=== PATIENT | female | born 1960 | race American Indian/Alaskan Native ===

== ENCOUNTER 2017-02-06 14:06 | Emergency (ER) | payer MEDICAID ==
[2017-02-06 15:24] LABS: Basophils % (Auto) 1.7 % (0.0-1.8); Eosinophils % (Auto) 3.9 % (0.0-4.3); Hematocrit 41.7 % (30.3-42.9); Hemoglobin 13.2 gm/dl (10.1-14.3); Mean Corpuscular HGB Conc 32 % (30-34); Mean Corpuscular Volume 81 fl (79-97); Platelet Count 178 K/mm3 (140-440); Red Blood Count 5.12 M/mm3 (3.65-5.03); Red Cell Distribution Width 15.7 % (13.2-15.2); White Blood Count 7.2 K/mm3 (4.5-11.0)
[2017-02-06 15:26] LABS: Calcium 6.4 mg/dL (8.4-10.2)
[2017-02-06 15:29] LABS: Mean Corpuscular Hemoglobin 26 pg (28-32)
--- NOTE | 2017-02-06 16:12 | Cat Scan Report ---
CT scan of head without contrast: Findings: Ventricles are normal in size and midline in location. No evidence of acute ischemia, hemorrhage or mass. No extra axial fluid collection. Normal brainstem and cerebellum. Normal sinuses. Left mastoid air cells are well pneumatized. The right are not pneumatized. Impression: No acute intracranial abnormality.
--- NOTE | 2017-02-06 16:14 | Cat Scan Report ---
CT scan of cervical spine: History: Fall. Findings The odontoid process and the lateral mass and in posterior arch of atlas appears unremarkable. Normal occipital condyles. Normal height and signal intensity of vertebral bodies. Decrease in height of C4-C5, C5-C6 and C6-7. Sclerotic edges articular surfaces a peripheral osteophyte suggestive severe cervical spondylosis. No fracture. Normal prevertebral soft tissue. Impression: Cervical spondylosis. No acute fracture. The
[2017-02-06 16:24] LABS: Potassium 3.6 mmol/L (3.6-5.0)
--- NOTE | 2017-02-06 16:35 | Emergency Department Report ---
ED Anxiety HPI - General Chief Complaint: Anxiety Stated Complaint: STRESS Time Seen by Provider: 02/06/17 16:22 Source: patient, EMS Mode of arrival: Ambulatory Limitations: No Limitations - History of Present Illness Initial Comments: 56-year-old female presents to the emergency department complaining of anxiety. Patient states that this morning she began having sharp left-sided chest pain and shortness of breath. She reports shaking all over as well. Chest pain did not radiate. Her symptoms have resolved at this time. Patient reports increased stress due to multiple recent deaths in the family. She states she is having a difficult time coping with the steps. She denies suicidal or homicidal thoughts. She also denies visual or auditory hallucinations. There are no other complaints. MD Complaint: anxiety, shortness of breath -: Sudden, This morning Symptoms: dyspnea, chest pain Place: home Previous History of Same: No Severity: moderate Quality: improving Provoking factors: recent /illness of f Improves With: nothing Worsens With: nothing Associated symptoms: chest pain, shortness of breath, headaches - Related Data Home Medications: Previous Rx's Medication Instructions Recorded Last Taken Type LORazepam [Ativan] 0.5 mg PO Q6H PRN #30 tablet 02/06/17 Unknown Rx Metoprolol [Lopressor TAB] 25 mg PO BID #60 tablet 02/06/17 Unknown Rx Allergies/Adverse Reactions: Allergies Allergy/AdvReac Type Severity Reaction Status Date / Time aspirin Allergy Unknown Verified 02/06/17 14:41 ED Review of Systems ROS: Stated complaint: STRESS Other details as noted in HPI Comment: All other systems reviewed and negative Respiratory: shortness of breath Cardiovascular: chest pain Neurological: headache Psychiatric: anxiety ED Past Medical Hx - Past Medical History Previous Medical History?: Yes Hx Hypertension: Yes Additional medical history: Slow HR, Ear clogged - Surgical History Past Surgical History?: Yes Additional Surgical History: Tubal ligation, cataract surgery - Family History Family history: no significant - Social History Smoking Status: Never Smoker Substance Use Type: Marijuana, Prescribed - Medications Home Medications: Home Medications Medication Instructions Recorded Confirmed Last Taken Type LORazepam [Ativan] 0.5 mg PO Q6H PRN #30 tablet 02/06/17 Unknown Rx Metoprolol [Lopressor TAB] 25 mg PO BID #60 tablet 02/06/17 Unknown Rx ED Physical Exam - General Limitations: No Limitations General appearance: alert, in no apparent distress - Head Head exam: Present: atraumatic, normocephalic - Eye Eye exam: Present: PERRL, EOMI, other (Opacified right lens, consistent with cataract) - ENT ENT exam: Present: normal exam, normal orophraynx, mucous membranes moist - Neck Neck exam: Present: normal inspection, full ROM. Absent: tenderness - Respiratory Respiratory exam: Present: normal lung sounds bilaterally. Absent: respiratory distress - Cardiovascular Cardiovascular Exam: Present: regular rate, normal rhythm, normal heart sounds - GI/Abdominal GI/Abdominal exam: Present: soft, normal bowel sounds. Absent: distended, tenderness - Extremities Exam Extremities exam: Present: normal inspection, full ROM. Absent: tenderness - Back Exam Back exam: Present: normal inspection, full ROM. Absent: tenderness - Neurological Exam Neurological exam: Present: alert, oriented X3. Absent: motor sensory deficit - Skin Skin exam: Present: warm, dry, intact ED Course Vital Signs 02/06/17 02/06/17 02/06/17 14:41 15:21 16:19 Temperature 98.5 F Pulse Rate 95 H Respiratory 20 Rate Blood Pressure 159/126 176/77 Blood Pressure [Left] O2 Sat by Pulse 94 95 Oximetry 02/06/17 02/06/17 02/06/17 16:20 16:30 16:35 Temperature Pulse Rate 98 H Respiratory 18 Rate Blood Pressure 176/77 170/90 Blood Pressure 176/77 [Left] O2 Sat by Pulse 95 94 94 Oximetry 02/06/17 02/06/17 02/06/17 16:40 16:50 17:00 Temperature Pulse Rate Respiratory Rate Blood Pressure 151/97 182/83 182/83 Blood Pressure [Left] O2 Sat by Pulse 93 93 92 Oximetry 02/06/17 02/06/17 02/06/17 17:02 17:10 17:17 Temperature Pulse Rate 103 H Respiratory 18 Rate Blood Pressure 178/108 178/108 Blood Pressure [Left] O2 Sat by Pulse 94 94 Oximetry 02/06/17 02/06/17 02/06/17 17:20 17:30 17:40 Temperature Pulse Rate Respiratory Rate Blood Pressure 187/106 163/88 163/88 Blood Pressure [Left] O2 Sat by Pulse 94 94 93 Oximetry 02/06/17 02/06/17 02/06/17 17:57 18:00 18:10 Temperature Pulse Rate 96 H 97 H Respiratory 12 25 H Rate Blood Pressure 148/94 148/94 148/94 Blood Pressure [Left] O2 Sat by Pulse 81 L Oximetry ED Medical Decision Making - Lab Data Result diagrams: 02/06/17 14:56 02/06/17 14:56 - Medical Decision Making Lab results reviewed and discussed with the patient. Patient has been evaluated by mental health and cleared for discharge with outpatient follow-up. Patient will be discharged home at this time to follow up with a primary care physician. - Differential Diagnosis anxiety, depression, atypical chest pain Critical care attestation.: If time is entered above; I have spent that time in minutes in the direct care of this critically ill patient, excluding procedure time. ED Disposition Clinical Impression: Anxiety, Essential hypertension Disposition: - TO HOME OR SELFCARE Is pt being admited?: No Condition: Stable Instructions: Hypertension (ED), Anxiety (ED) Prescriptions: LORazepam [Ativan] 0.5 mg PO Q6H PRN #30 tablet PRN Reason: Anxiety Metoprolol [Lopressor TAB] 25 mg PO BID #60 tablet Referrals: AMOR TAVAREZ MD [Staff Physician] - 3-5 Days Time of Disposition: 18:55
[2017-02-06] MEDS ORDERED: LOPRESSOR PO ONE (17:12)
[2017-02-06 18:11] LABS: Urine Drugs of Abuse Note Disclamer
[2017-02-06 18:30] LABS: Bilirubin,Urine NEG (Negative); Blood,Urine SM (Negative); Ketones,Urine NEG (Negative); Leukocyte Esterase,Urine LG (Negative); Mucus,Urine FEW /HPF; Nitrite,Urine NEG (Negative); Protein,Urine <15 mg/dL mg/dL (Negative); Urobilinogen,Urine < 2.0 mg/dL (<2.0)
[2017-02-06 18:54] VITALS: BP 161/91
== END 2017-02-06 19:06 | disposition home or self-care (01) ==
LOC: ED 14:06
DX: I10 Essential (primary) hypertension (principal); F41.9 Anxiety disorder, unspecified; F12.10 Cannabis abuse, uncomplicated
CPT/HCPCS: 36415; 70450; 72125; 80048; 80307; 81001; 85025; 99285; G0480; 80320

== ENCOUNTER 2020-07-21 14:25 | Emergency (ER) | payer MEDICAID ==
--- NOTE | 2020-07-21 14:37 | Event Note ---
ED Screening Note ED Screening Note: Patient is a 60-year-old female presents emergency room with complaints of vaginal bleeding that began 4 days ago. she states that today she began to have left-sided abdominal pain and nausea vomiting She states that she feels generalized weakness and dizziness She is currently standing at [facility] She states that she was admitted at [facility] for 2 months and was recently, she states that she was there due to her CHF and COPD, she states that she wears oxygen at home but she states her tank ran out This initial assessment/diagnostic orders/clinical plan/treatment(s) is/are subject to change based on patients health status, clinical progression and re- assessment by fellow clinical providers in the ED. Further treatment and workup at subsequent clinical providers discretion. Patient/guardian urged not to elope from the ED as their condition may be serious if not clinically assessed and managed. Initial orders include: Labs, CT, ultrasound, UA, EKG
[2020-07-21 15:02] LABS: Basophils # (Auto) 0.1 K/mm3 (0.0-0.1); Basophils % (Auto) 0.8 % (0.0-1.8); Eosinophils # (Auto) 0.2 K/mm3 (0.0-0.4); Eosinophils % (Auto) 2.2 % (0.0-4.3); Hematocrit 36.1 % (30.3-42.9); Hemoglobin 11.3 gm/dl (10.1-14.3); Lymphocytes # (Auto) 1.3 K/mm3 (1.2-5.4); Lymphocytes % (Auto) 17.5 % (13.4-35.0); Mean Corpuscular HGB Conc 32 % (30-34); Mean Corpuscular Volume 89 fl (79-97); Monocytes # (Auto) 0.5 K/mm3 (0.0-0.8); Monocytes % (Auto) 6.8 % (0.0-7.3); Platelet Count 187 K/mm3 (140-440); Red Blood Count 4.04 M/mm3 (3.65-5.03); Red Cell Distribution Width 16.2 % (13.2-15.2)
[2020-07-21 15:09] LABS: INR 0.94 (0.87-1.13)
[2020-07-21 15:22] LABS: Alanine Aminotransferase 40 units/L (7-56); Albumin 3.6 g/dL (3.9-5); BUN/Creatinine Ratio 14; Blood Urea Nitrogen 20 mg/dL (7-17); Calcium 9.1 mg/dL (8.4-10.2); Hemolysis Index 4
[2020-07-21 17:26] LABS: Bacteria,Urine 4+ /HPF (Negative); Bilirubin,Urine SM (Negative); Blood,Urine LG (Negative); Color,Urine Red (Yellow); Mucus,Urine 3+ /HPF
[2020-07-21 17:27] LABS: Protein,Urine >500 mg/dL (Negative); RBC,Urine > 182.0 /HPF (0.0-6.0)
[2020-07-21 17:42] LABS: Ictotest,Urine Positive (Negative)
[2020-07-21] MEDS ORDERED: SODIUM CHLORIDE 0.9% 1000 ML 1,000 ML IV ONE (18:31)
[2020-07-21] MEDS ORDERED: cefTRIAXone/NS 1 GM/50 ML 1 GM/50 ML BAG IV ONE (18:40)
[2020-07-21] MEDS ORDERED: ACETAMINOPHEN 500 MG TAB PO ONE (18:42)
--- NOTE | 2020-07-21 19:00 | Emergency Department Report ---
ED General Adult HPI - General Chief complaint: Vaginal Bleeding Stated complaint: DIZZINESS Time Seen by Provider: 07/21/20 18:30 Source: patient Mode of arrival: Wheelchair Limitations: No Limitations - History of Present Illness Initial comments: This is a 60-year-old morbidly obese female she states that last night she started feeling weak with and had episodes of nausea and vomiting states she vomited around 9 times she now complains of generalized abdominal pain urinary frequency and urinary incontinence. She is a resident of a transitional home patient also reports about a month ago being hospitalized at [facility] with respiratory illness which she has recovered well from -: Sudden Location: abdomen Radiation: non-radiation Consistency: constant Improves with: none Worsens with: none Associated Symptoms: loss of appetite, nausea/vomiting, weakness. denies: chest pain, cough, diaphoresis, fever/chills Treatments Prior to Arrival: none - Related Data Previous Rx's Medication Instructions Recorded Last Taken Type LORazepam [Ativan] 0.5 mg PO Q6H PRN #30 tablet 02/06/17 Unknown Rx Metoprolol [Lopressor TAB] 25 mg PO BID #60 tablet 02/06/17 Unknown Rx Ciprofloxacin HCl [Ciprofloxacin 500 mg PO Q12HR 7 Days #14 tab 07/21/20 Unknown Rx TAB] Allergies Allergy/AdvReac Type Severity Reaction Status Date / Time aspirin Allergy Unknown Verified 02/06/17 14:41 ED Review of Systems ROS: Stated complaint: DIZZINESS Other details as noted in HPI Constitutional: no symptoms reported, chills, malaise Eyes: denies: eye discharge, vision change ENT: denies: dental pain, hearing loss, congestion Respiratory: denies: cough, shortness of breath, SOB with exertion, wheezing Cardiovascular: denies: chest pain, palpitations, dyspnea on exertion, edema, syncope, paroxysmal nocturnal dyspnea Endocrine: denies: excessive sweating, flushing, intolerance to cold, intolerance to heat Gastrointestinal: abdominal pain, nausea, vomiting, other (Loose stools) Genitourinary: urgency, frequency Skin: denies: rash, lesions, change in hair/nails Neurological: denies: headache, weakness Psychiatric: denies: anxiety, depression Hematological/Lymphatic: denies: easy bleeding ED Past Medical Hx - Past Medical History Previous Medical History?: Yes Hx Hypertension: Yes Hx Congestive Heart Failure: Yes (home O2) Hx Asthma: Yes Hx COPD: Yes Additional medical history: Slow HR, Ear clogged - Surgical History Additional Surgical History: Tubal ligation, cataract surgery - Social History Smoking Status: Never Smoker Substance Use Type: None - Medications Home Medications: Home Medications Medication Instructions Recorded Confirmed Last Taken Type LORazepam [Ativan] 0.5 mg PO Q6H PRN #30 tablet 02/06/17 Unknown Rx Metoprolol [Lopressor TAB] 25 mg PO BID #60 tablet 02/06/17 Unknown Rx Ciprofloxacin HCl [Ciprofloxacin 500 mg PO Q12HR 7 Days #14 tab 07/21/20 Unk nown Rx TAB] ED Physical Exam - General Limitations: No Limitations General appearance: alert, in no apparent distress, other (Morbidly obese) - Head Head exam: Present: atraumatic - Eye Eye exam: Present: normal appearance, EOMI - ENT ENT exam: Present: normal exam, mucous membranes dry - Neck Neck exam: Present: normal inspection - Respiratory Respiratory exam: Present: normal lung sounds bilaterally. Absent: respiratory distress, wheezes, rales, rhonchi, chest wall tenderness - Cardiovascular Cardiovascular Exam: Present: regular rate, normal heart sounds - GI/Abdominal GI/Abdominal exam: Present: soft, normal bowel sounds. Absent: guarding, rebound - Rectal Rectal exam: Present: other (liquid brown stool) - Speculum exam: Present: vaginal bleeding. Absent: tissue - Extremities Exam Extremities exam: Present: other (excessive dryness) - Neurological Exam Neurological exam: Present: alert, oriented X3 - Psychiatric Psychiatric exam: Present: normal affect - Skin Skin exam: Present: warm, dry, normal color ED Course Vital Signs 07/21/20 07/21/20 07/21/20 14:31 20:59 21:08 Temperature 98.2 F 98.5 F Pulse Rate 78 95 H Respiratory 18 16 18 Rate Blood Pressure 135/78 143/122 Blood Pressure [Left] O2 Sat by Pulse 94 100 Oximetry 07/21/20 07/21/20 21:09 21:44 Temperature 98.5 F Pulse Rate 92 H Respiratory 16 18 Rate Blood Pressure Blood Pressure 143/122 [Left] O2 Sat by Pulse 100 99 Oximetry - Reevaluation(s) Reevaluation #1: 07/21/20 20:57 At patient bedside vaginal exam done there is small amount of dark red blood from the cervix no clots noted. Nurses unable to get IV started. I started a 22-gauge Angiocath to the right AC. Fluids started IV Rocephin home waiting for CT of the abdomen Reevaluation #2: 07/21/20 23:41 To see patient she is in no acute distress all findings discussed with patient. She is aware of the that she has a urinary tract infection. Also the concern for postmenopausal bleeding and importance of follow-up with with [facility] for further evaluation and treatment. Patient aware of the findings for her CAT scan. I encourage patient to carry out good hygiene drinking lots of fluids taking antibiotics as prescribed. Patient in no acute distress 07/21/20 23:42 ED Medical Decision Making - Lab Data Result diagrams: 07/21/20 14:42 07/21/20 14:42 - Radiology Data Radiology results: report reviewed FINDINGS: Lung Bases: Mild groundglass opacities in the lung bases, greater on the right, could be atelectatic but are nonspecific. No dense consolidation. Skeletal System: No acute abnormality. ABDOMEN: Liver: No significant abnormality. Gallbladder: No significant abnormality. Bile Ducts: No significant abnormality. Pancreas: No significant abnormality. Spleen: No significant abnormality. Adrenals: No significant abnormality. Right Kidney: No significant abnormality. Left Kidney: No significant abnormality. Upper GI tract: No significant abnormality. Lymph Nodes: No significant adenopathy. Aorta: No significant abnormality. Additional Findings: There is a small fat-containing umbilical hernia. PELVIS: Colon: No acute abnormality. Diverticulosis is noted. Urinary Bladder and Distal Ureters: No significant abnormality. Appendix: No significant abnormality. Lymph Nodes: No significant adenopathy. Additional Findings: The cervix is somewhat prominent. Uterus is otherwise unremarkable, given noncontrast technique. No ovarian pathology. IMPRESSION: 1. Within the limitations of non contrast technique, no acute process in the abdomen or pelvis. 2. Mild prominence of the cervix, correlate with physical exam. 3. Mild somewhat streaky groundglass opacities within both lung bases may be atelectatic. - Medical Decision Making 60-year-old morbidly obese female she presents with abdominal pain. No acute abnormal findings in her blood work. Her urine analysis is positive for an acute urinary tract infection. CAT scan of of her abdomen Mild prominence of the cervix, correlate with physical exam. Mild somewhat streaky ground postmenopausal bleeding which would need glass opacities within both lung bases may be atelectatic. Her physical exam was positive for vaginal bleeding. Patient will need follow-up for postmenopausal bleeding with [facility]. The atelectatic appearance of her lung bases follows along with the fact that patient was recently admitted at [facility] for upper respiratory symptoms. In the emergency room patient was given 1 liter normal saline bolus . IV Rocephin given. Oral antibiotic for UTI very little concern for urosepsis not tachy cardicshe has a normal white count,afebrile - Differential Diagnosis Urinary tract infection postmenopausal bleeding urosepsis Critical Care Time: No Critical care attestation.: If time is entered above; I have spent that time in minutes in the direct care of this critically ill patient, excluding procedure time. ED Disposition Clinical Impression: Postmenopausal bleeding Urinary tract infection Qualifiers: Urinary tract infection type: acute cystitis Hematuria presence: with hematuria Qualified Code(s): N30.01 - Acute cystitis with hematuria Disposition: TO HOME OR SELFCARE Is pt being admited?: No Does the pt Need Aspirin: No Condition: Stable Instructions: Antibiotic Medicine, Adult, [id number], Urinary Tract Infection, Adult, Postmenopausal Bleeding, [id number] Additional Instructions: It is very important that you follow-up with your [facility] doctor regarding vaginal bleeding. Please follow-up with my [facility] at [phone] call and make an appointment as soon as possible. Drink plenty fluids at least 6 to 8 glasses/day of water. Take antibiotic as prescribed. Return to the emergency room for any worsening symptoms which includes fever chills inability to eat Prescriptions: Ciprofloxacin HCl [Ciprofloxacin TAB] 500 mg PO Q12HR 7 Days #14 tab Referrals: FRANK MARIN MD [Primary Care Provider] - 3-5 Days CLAUDIA HOLCOMB MD [Staff Physician] - 3-5 Days Time of Disposition: 23:28
--- NOTE | 2020-07-21 22:43 | Cat Scan Report ---
CT ABDOMEN AND PELVIS WITHOUT IV CONTRAST INDICATION: abd pain, n/v, vaginal bleeding. COMPARISON: None available. TECHNIQUE: All CT scans at this facility use dose modulation, automated exposure control, iterative reconstructi on or weight based dosing, when appropriate, to reduce radiation dose to as low as reasonably achieva ble. FINDINGS: Lung Bases: Mild groundglass opacities in the lung bases, greater on the right, could be atelectatic but are nonspecific. No dense consolidation. Skeletal System: No acute abnormality. ABDOMEN: Liver: No significant abnormality. Gallbladder: No significant abnormality. Bile Ducts: No significant abnormality. Pancreas: No significant abnormality. Spleen: No significant abnormality. Adrenals: No significant abnormality. Right Kidney: No significant abnormality. Left Kidney: No significant abnormality. Upper GI tract: No significant abnormality. Lymph Nodes: No significant adenopathy. Aorta: No significant abnormality. Additional Findings: There is a small fat-containing umbilical hernia. PELVIS: Colon: No acute abnormality. Diverticulosis is noted. Urinary Bladder and Distal Ureters: No significant abnormality. Appendix: No significant abnormality. Lymph Nodes: No significant adenopathy. Additional Findings: The cervix is somewhat prominent. Uterus is otherwise unremarkable, given noncon trast technique. No ovarian pathology. IMPRESSION: 1. Within the limitations of non contrast technique, no acute process in the abdomen or pelvis. 2. Mild prominence of the cervix, correlate with physical exam. 3. Mild somewhat streaky groundglass opacities within both lung bases may be atelectatic. Signer Name: Adin Newman MD Signed: 07/21/2020 10:39 PM Workstation Name: [id number]
[2020-07-21] MEDS ORDERED: oxyCODONE /ACETAMINOPHEN 5-325MG TAB PO ONE (23:40)
[2020-07-22 01:02] VITALS: BP 137/92
== END 2020-07-22 01:00 | disposition home or self-care (01) ==
LOC: ED 14:25
DX: N95.0 Postmenopausal bleeding (principal); N39.0 Urinary tract infection, site not specified; I11.0 Hypertensive heart disease with heart failure; I50.9 Heart failure, unspecified; J44.9 Chronic obstructive pulmonary disease, unspecified; Z98.51 Tubal ligation status; Z79.899 Other long term (current) drug therapy; Z88.6 Allergy status to analgesic agent
CPT/HCPCS: 36415; 74176; 80053; 81001; 83690; 84484; 85025; 85610; 85730; 86850; 86900; 86901; 93005; 96365; 96366; 99285; J0696; J7030

== ENCOUNTER 2020-07-24 08:43 | Emergency (ER) | payer MEDICAID ==
[2020-07-24] MEDS ORDERED: fentaNYL 100 MCG/2 ML INJ IV ONE (11:35)
[2020-07-24] MEDS ORDERED: fentaNYL 100 MCG/2 ML INJ IM ONE (11:35)
[2020-07-24] MEDS ORDERED: ONDANSETRON 4 MG/2 ML INJ IM ONE (11:36)
[2020-07-24] MEDS ORDERED: BUTALB/ACETAMINOPHEN/CAFFEINE TAB PO ONE (11:36)
--- NOTE | 2020-07-24 11:43 | Emergency Department Report ---
HPI - General Chief Complaint: Headache Time Seen by Provider: 07/24/20 11:08 - HPI HPI: Room 5 The patient is a 60-year-old female present with a chief complaint of headache. Patient states last night she developed occipital headache. Patient admits to nausea vomiting but denies fever. Patient states her headache has been intermittent and she currently gives it a score of 10/10. Patient states her last traumatic event occurred April 26, 2020 when she fell down some stairs. Patient states she went to [facility] emergency department and received a CAT scan but was not given any information about the results ED Past Medical Hx - Past Medical History Previous Medical History?: Yes Hx Hypertension: Yes Hx Congestive Heart Failure: Yes (home O2) Hx Asthma: Yes Hx COPD: Yes Additional medical history: Slow HR, Ear clogged - Surgical History Past Surgical History?: Yes Additional Surgical History: Tubal ligation, cataract surgery - Family History Family history: no significant - Social History Smoking Status: Never Smoker Substance Use Type: None (Denies illicit drug use) - Medications Home Medications: Home Medications Medication Instructions Recorded Confirmed Last Taken Type LORazepam [Ativan] 0.5 mg PO Q6H PRN #30 tablet 02/06/17 Unknown Rx Metoprolol [Lopressor TAB] 25 mg PO BID #60 tablet 02/06/17 Unknown Rx Ciprofloxacin HCl [Ciprofloxacin 500 mg PO Q12HR 7 Days #14 tab 07/21/20 Unknown Rx TAB] HYDROcodone/APAP 5-325 [[place] 1 - 2 each PO Q6HR PRN #10 tablet 07/24/20 Unknown Rx 5/325] ED Review of Systems ROS: Stated complaint: DIZZINESS,HEADACHE Other details as noted in HPI Constitutional: no symptoms reported. denies: fever Eyes: denies: eye pain ENT: denies: throat pain Respiratory: no symptoms reported Cardiovascular: denies: chest pain Endocrine: no symptoms reported Gastrointestinal: nausea, vomiting. denies: abdominal pain Genitourinary: denies: dysuria Musculoskeletal: denies: back pain Neurological: headache Physical Exam - Physical Exam Vital Signs: Vital Signs 07/24/20 07/24/20 09:06 10:34 Temperature 98.3 F 98.1 F Pulse Rate 107 H 92 H Respiratory 22 18 Rate Blood Pressure 166/72 Blood Pressure 159/87 [Right] O2 Sat by Pulse 94 93 Oximetry Physical Exam: GENERAL: The patient is well-developed well-nourished female lying on stretcher appearing to be in mild discomfort HEENT: Normocephalic. Atraumatic. Extraocular motions are intact. Patient has moist mucous membranes. NECK: Supple. Trachea midline CHEST/LUNGS: Clear to auscultation. There is no respiratory distress noted. HEART/CARDIOVASCULAR: Regular. There is no tachycardia. There is no gallop rub or murmur. ABDOMEN: Abdomen is soft, nontender. Patient has normal bowel sounds. There is no abdominal distention. SKIN: There is no rash. There is no edema. There is no diaphoresis. NEURO: The patient is awake, alert, and oriented. The patient is cooperative. The patient has no focal neurologic deficits. The patient has normal speech. Cranial nerves II through XII grossly intact MUSCULOSKELETAL: There is no evidence of acute injury. ED Course Vital Signs 07/24/20 07/24/20 09:06 10:34 Temperature 98.3 F 98.1 F Pulse Rate 107 H 92 H Respiratory 22 18 Rate Blood Pressure 166/72 Blood Pressure 159/87 [Right] O2 Sat by Pulse 94 93 Oximetry ED Medical Decision Making - Radiology Data Radiology results: report reviewed (CT head), image reviewed (CT head) [place] [address] Cat Scan Report Signed Patient: CHHAYA BOYLE MR#: [id number] : 1960 Acct:[id number] Age/Sex: 60 / F ADM Date: 07/24/20 Loc: ED Attending Dr: Ordering Physician: CHINO REARDON MD Date of Service: 07/24/20 Procedure(s): CT head/brain wo con Accession Number(s): [id number] cc: CHINO REARDON MD CT HEAD WITHOUT CONTRAST INDICATION / CLINICAL INFORMATION: Headaches TECHNIQUE: All CT scans at this location are performed using CT dose reduction for ALARA by means of automated exposure control. COMPARISON: 02/06/17 FINDINGS: BRAIN PARENCHYMA: No acute intracranial hemorrhage. No evidence of recent infarct. No mass effect or midline shift. VENTRICULAR SYSTEM/EXTRA-AXIAL SPACES: Ventricles are normal for age. No extra-axial fluid collection. ORBITS: Normal as visualized. SKELETAL SYSTEM/SOFT TISSUES: Normal bones and soft tissues. PARANASAL SINUSES/MASTOID AIR CELLS: No significant abnormality. ADDITIONAL FINDINGS: None. IMPRESSION: No acute intracranial abnormality. Signer Name: Ashely Meza MD Signed: 07/24/2020 12:45 PM Workstation Name: [id number] Transcribed By: EKTA Dictated By: ASHELY PULIDO MD Electronically Authenticated By: ASHELY PULIDO MD Signed Date/Time: 07/24/20 124 DD/ TD/TT: - Differential Diagnosis Headache, subdural hematoma, Critical care attestation.: If time is entered above; I have spent that time in minutes in the direct care of this critically ill patient, excluding procedure time. ED Disposition Clinical Impression: Headache Disposition: DC- TO HOME OR SELFCARE Is pt being admited?: No Does the pt Need Aspirin: No Condition: Stable Additional Instructions: Return to the emergency department should you develop worsening symptoms, inability to tolerate food or liquids, high fever or any other concerns Prescriptions: HYDROcodone/APAP 5-325 [[place] 5/325] 1 - 2 each PO Q6HR PRN #10 tablet PRN Reason: Pain Referrals: PRIMARY CARE, [Primary Care Provider] - 3-5 Days PHILIPPE MARTINO MD [Staff Physician] - 3-5 Days (Dr. Martino is a neurologist. Please follow-up with him for further evaluation) Time of Disposition: 14:29
--- NOTE | 2020-07-24 12:50 | Cat Scan Report ---
CT HEAD WITHOUT CONTRAST INDICATION / CLINICAL INFORMATION: Headaches TECHNIQUE: All CT scans at this location are performed using CT dose reduction for ALARA by means of automated exposure control. COMPARISON: 02/06/17 FINDINGS: BRAIN PARENCHYMA: No acute intracranial hemorrhage. No evidence of recent infarct. No mass effect or midline shift. VENTRICULAR SYSTEM/EXTRA-AXIAL SPACES: Ventricles are normal for age. No extra-axial fluid collection . ORBITS: Normal as visualized. SKELETAL SYSTEM/SOFT TISSUES: Normal bones and soft tissues. PARANASAL SINUSES/MASTOID AIR CELLS: No significant abnormality. ADDITIONAL FINDINGS: None. IMPRESSION: No acute intracranial abnormality. Signer Name: Chin Meza MD Signed: 07/24/2020 12:45 PM Workstation Name: [id number]
[2020-07-24] MEDS ORDERED: HYDROmorphone 1 MG/1 ML INJ IM ONE (13:53)
[2020-07-24 17:06] VITALS: BP 163/98
== END 2020-07-24 21:27 | disposition home or self-care (01) ==
LOC: ED 08:43
DX: R51.9 Headache, unspecified (principal); I11.0 Hypertensive heart disease with heart failure; I50.9 Heart failure, unspecified; J44.9 Chronic obstructive pulmonary disease, unspecified; Z98.51 Tubal ligation status; Z98.890 Other specified postprocedural states; Z88.6 Allergy status to analgesic agent
CPT/HCPCS: 70450; 96372; 99284; J1170; J2405; J3010

== ENCOUNTER 2020-07-26 12:00 | Emergency (ER) | payer MEDICAID ==
[2020-07-26] MEDS ORDERED: ONDANSETRON 4 MG/2 ML INJ IV ONE (14:43)
[2020-07-26] MEDS ORDERED: MORPHINE 4 MG/1 ML INJ IV ONE (14:43)
--- NOTE | 2020-07-26 14:47 | Emergency Department Report ---
ED Dizziness HPI - General Chief Complaint: Dizziness Stated Complaint: DIZZINESS,HOT CHEST Time Seen by Provider: 07/26/20 14:34 Source: patient, EMS Mode of arrival: Stretcher Limitations: No Limitations - History of Present Illness Initial Comments: Patient is 60 years old female with history of congestive heart failure, hypertension and COPD. Patient is on home oxygen. Patient presented to the ER via EMS from home complaining of dizziness for the last few days and feeling hot all over. Patient stated that she has similar episode like this before. Patient also complaining of headache. Patient denied any focal weakness numbness or tingling sensation. No chest pain or shortness of breath. MD Complaint: dizziness, lightheadedness -: days(s) Timing: gradual onset Description: sense of movement History of Same: Yes Severity: moderate Associated Symptoms: denies other symptoms - Related Data Previous Rx's Medication Instructions Recorded Last Taken Type LORazepam [Ativan] 0.5 mg PO Q6H PRN #30 tablet 02/06/17 Unknown Rx Metoprolol [Lopressor TAB] 25 mg PO BID #60 tablet 02/06/17 Unknown Rx Ciprofloxacin HCl [Ciprofloxacin 500 mg PO Q12HR 7 Days #14 tab 07/21/20 Unknown Rx TAB] HYDROcodone/APAP 5-325 [Sidon 1 - 2 each PO Q6HR PRN #10 tablet 07/24/20 Unknown Rx 5/325] Promethazine [Phenergan] 25 mg PO Q6HR PRN #20 tab 07/24/20 Unknown Rx Promethazine [Phenergan] 25 mg ND Q6HR PRN #5 supp.rect 07/24/20 Unknown Rx Allergies Allergy/AdvReac Type Severity Reaction Status Date / Time aspirin Allergy Unknown Verified 02/06/17 14:41 ED Review of Systems ROS: Stated complaint: DIZZINESS,HOT CHEST Other details as noted in HPI Comment: All other systems reviewed and negative Constitutional: denies: chills, fever Respiratory: denies: cough, shortness of breath, SOB with exertion, wheezing Cardiovascular: denies: chest pain, palpitations Gastrointestinal: denies: abdominal pain, nausea, vomiting Musculoskeletal: denies: back pain Neurological: headache. denies: weakness, numbness, paresthesias, confusion, abnormal gait ED Past Medical Hx - Past Medical History Hx Hypertension: Yes Hx Congestive Heart Failure: Yes (home O2) Hx Asthma: Yes Hx COPD: Yes Additional medical history: Slow HR, Ear clogged - Surgical History Additional Surgical History: Tubal ligation, cataract surgery - Social History Smoking Status: Unknown if ever smoked - Medications Home Medications: Home Medications Medication Instructions Recorded Confirmed Last Taken Type LORazepam [Ativan] 0.5 mg PO Q6H PRN #30 tablet 02/06/17 Unknown Rx Metoprolol [Lopressor TAB] 25 mg PO BID #60 tablet 02/06/17 Unknown Rx Ciprofloxacin HCl [Ciprofloxacin 500 mg PO Q12HR 7 Days #14 tab 07/21/20 Unknown Rx TAB] HYDROcodone/APAP 5-325 [Sidon 1 - 2 each PO Q6HR PRN #10 tablet 07/24/20 Unknown Rx 5/325] Promethazine [Phenergan] 25 mg PO Q6HR PRN #20 tab 07/24/20 Unknown Rx Promethazine [Phenergan] 25 mg ND Q6HR PRN #5 supp.rect 07/24/20 Unknown Rx ED Physical Exam - General Limitations: No Limitations General appearance: alert, in no apparent distress - Head Head exam: Present: atraumatic, normocephalic, normal inspection - Eye Eye exam: Present: normal appearance - ENT ENT exam: Present: normal exam, normal orophraynx, mucous membranes moist - Neck Neck exam: Present: normal inspection, full ROM. Absent: tenderness, meningismus - Respiratory Respiratory exam: Present: normal lung sounds bilaterally - Cardiovascular Cardiovascular Exam: Present: regular rate, normal rhythm, normal heart sounds - GI/Abdominal GI/Abdominal exam: Present: soft, normal bowel sounds. Absent: distended, tenderness, guarding, rebound, rigid, organomegaly, mass, bruit, pulsatile mass, hernia - Extremities Exam Extremities exam: Present: normal inspection, full ROM, normal capillary refill. Absent: pedal edema, calf tenderness - Back Exam Back exam: Present: normal inspection, full ROM. Absent: CVA tenderness (R), CVA tenderness (L) - Neurological Exam Neurological exam: Present: alert, oriented X3, CN II-XII intact - Psychiatric Psychiatric exam: Present: normal mood - Skin Skin exam: Present: warm, intact, normal color ED Course Vital Signs 07/26/20 07/26/20 07/26/20 16:31 16:32 16:34 Pulse Rate 85 76 Respiratory 22 16 20 Rate Blood Pressure 128/78 O2 Sat by Pulse 100 98 Oximetry 07/26/20 07/26/20 07/26/20 16:45 17:01 17:02 Pulse Rate 71 66 Respiratory 21 13 16 Rate Blood Pressure 128/78 114/53 O2 Sat by Pulse 100 100 Oximetry 07/26/20 07/26/20 07/26/20 17:15 17:31 17:45 Pulse Rate 72 77 89 Respiratory 15 13 16 Rate Blood Pressure 114/53 114/53 114/53 O2 Sat by Pulse 100 100 87 Oximetry 07/26/20 18:01 Pulse Rate 69 Respiratory 14 Rate Blood Pressure 120/82 O2 Sat by Pulse 100 Oximetry ED Medical Decision Making - Lab Data Result diagrams: 07/26/20 14:55 07/26/20 14:55 - EKG Data -: EKG Interpreted by Me EKG shows normal: sinus rhythm Rate: normal - EKG Data Interpretation: no acute changes - Radiology Data Radiology results: report reviewed - Medical Decision Making Patient is 60 years old female with history of congestive heart failure, hypertension and COPD. Patient is on home oxygen. Patient presented to the ER via EMS from home complaining of dizziness for the last few days and feeling hot all over. Patient stated that she has similar episode like this before. Patient also complaining of headache. Patient denied any focal weakness n umbness or tingling sensation. No chest pain or shortness of breath. Patient received morphine and Zofran. Patient stated that she is feeling much better labs reviewed and is unremarkable. CT brain is negative for acute finding chest x-ray is unremarkable. Patient advised to follow-up with her primary care physician in the next 2 to 3 days and to return to the ER if she develop any new symptoms. Critical care attestation.: If time is entered above; I have spent that time in minutes in the direct care of this critically ill patient, excluding procedure time. ED Disposition Clinical Impression: Dizziness, Acute headache Disposition: -01 TO HOME OR SELFCARE Is pt being admited?: No Condition: Stable Instructions: General Headache Without Cause Referrals: PRIMARY CARE, [Primary Care Provider] - 3-5 Days
--- NOTE | 2020-07-26 15:15 | XRay Report ---
CHEST 1 VIEW INDICATION: Lightheadedness/Dizziness. COMPARISON: None. FINDINGS: Support devices: None. Heart: Normal. Lungs/Pleura: There are mild diffuse bilateral airspace opacities. No pleural abnormality. IMPRESSION: 1. Mild diffuse bilateral airspace opacities are nonspecific but could be seen in the setting of marisa a or bilateral infection. Signer Name: Adin Newman MD Signed: 07/26/2020 3:11 PM Workstation Name: [id number]
[2020-07-26 15:29] LABS: Hematocrit 33.3 % (30.3-42.9); Hemoglobin 10.4 gm/dl (10.1-14.3); Mean Corpuscular HGB Conc 31 % (30-34); Mean Corpuscular Volume 92 fl (79-97); Red Blood Count 3.61 M/mm3 (3.65-5.03); Red Cell Distribution Width 17.3 % (13.2-15.2)
[2020-07-26 15:30] LABS: Basophils # (Auto) 0.1 K/mm3 (0.0-0.1); Basophils % (Auto) 0.9 % (0.0-1.8); Eosinophils # (Auto) 0.4 K/mm3 (0.0-0.4); Eosinophils % (Auto) 4.3 % (0.0-4.3); Lymphocytes # (Auto) 2.1 K/mm3 (1.2-5.4); Lymphocytes % (Auto) 25.2 % (13.4-35.0); Monocytes # (Auto) 0.7 K/mm3 (0.0-0.8); Monocytes % (Auto) 8.2 % (0.0-7.3); Platelet Count 208 K/mm3 (140-440)
--- NOTE | 2020-07-26 16:02 | Cat Scan Report ---
CT BRAIN: 07/26/2020 INDICATION / CLINICAL INFORMATION: Lightheadedness/Dizziness. COMPARISON: 07/24/2020 FINDINGS: BRAIN/INTRACRANIAL STRUCTURES: Unenhanced CT images of the brain demonstrate no evidence of acute int racranial abnormality. Ventricles and sulci are normal in size and shape for a patient of this age. There is no evidence of acute ischemic injury, hemorrhage, or mass. There are no abnormal extra-axial fluid collections. EXTRACRANIAL STRUCTURES: Unremarkable. IMPRESSION: No acute abnormality. Negative unenhanced CT of the brain for age. There is been no change when compared to 07/24/2020. All CT scans at this location are performed using dose reduction to ALARA by means of automated expos ure control. Signer Name: Jonathan Montes MD Signed: 07/26/2020 3:57 PM Workstation Name: [id number]
[2020-07-26 16:40] LABS: Alanine Aminotransferase 25 units/L (7-56); Albumin 3.5 g/dL (3.9-5); BUN/Creatinine Ratio 15; Blood Urea Nitrogen 16 mg/dL (7-17); Calcium 7.7 mg/dL (8.4-10.2); Hemolysis Index 15
[2020-07-26 16:48] LABS: Bilirubin,Direct < 0.2 mg/dL (0-0.2)
[2020-07-26 18:31] LABS: Bilirubin,Urine NEG (Negative); Blood,Urine MOD (Negative); Color,Urine Yellow (Yellow); Mucus,Urine FEW /HPF; Urobilinogen,Urine < 2.0 mg/dL (<2.0)
[2020-07-27 13:19] VITALS: BP 101/65
== END 2020-07-27 13:19 | disposition home or self-care (01) ==
LOC: ED 12:00
DX: R51.9 Headache, unspecified (principal); R42 Dizziness and giddiness; I11.0 Hypertensive heart disease with heart failure; I50.9 Heart failure, unspecified; J44.9 Chronic obstructive pulmonary disease, unspecified; Z98.890 Other specified postprocedural states; Z88.6 Allergy status to analgesic agent; Z79.899 Other long term (current) drug therapy; Z98.51 Tubal ligation status
CPT/HCPCS: 36415; 70450; 71045; 80048; 80076; 81001; 82140; 84484; 85025; 96374; 96375; 99285; J2270; J2405

== ENCOUNTER 2020-07-29 11:04 | Observation (INO) | payer MEDICAID ==
[2020-07-29] MEDS ORDERED: MECLIZINE 25 MG TAB PO ONE (11:45)
[2020-07-29] MEDS ORDERED: METOCLOPRAMIDE 10 MG TAB PO ONE (11:45)
[2020-07-29] MEDS ORDERED: ACETAMINOPHEN 325 MG TAB PO ONE (11:45)
--- NOTE | 2020-07-29 11:47 | Emergency Department Report ---
ED General Adult HPI - General Chief complaint: Abdominal Pain Stated complaint: CHEST PAIN PUI?: Yes Time Seen by Provider: 07/29/20 11:30 Source: patient, EMS ( EMS documentation not available at time of chart dictation ), RN notes reviewed, old records reviewed Mode of arrival: Wheelchair Limitations: Physical Limitation - History of Present Illness Initial comments: The patient was evaluated in the emergency department for symptoms described in the history of present illness. He/she was evaluated in the context of the g lobal COVID-19 pandemic, which necessitated consideration that the patient might be at risk for infection with the virus that causes COVID-19. Institutional protocols and algorithms that pertain to the evaluation of patients at risk for COVID-19 are in a state of rapid change based on information released by regulatory bodies including the CDC and federal and state organizations. These policies and algorithms were followed during the patient's care in the emergency department. Please note that these policies, procedures and recommendations changed on a rapid basis. Patient is a 60-year-old female. She has a history of morbid obesity, reported CHF, unknown ejection fraction, COPD, hypertension, on oxygen. Patient has frequently presents to this emergency room over the past couple . Today, she presents to the ER with a complaint of nontraumatic diffuse abdominal cramping, constipation, headache which is nontraumatic, which she describes as dizziness/vertigo. No neck pain, chest pain. Chronic shortness of breath. She is not sure if she is having dysuria. The patient is not accompanied by friends or family at this time. She states that she has no ringing or buzzing sounds in her ears. She has had multiple recent evaluations for similar symptoms. However, today, she is found to have a low-grade fever, borderline hypoxia, and hypoglycemia. These appear to be somewhat new for the patient. She is not sure what medications she takes. -: Gradual, days(s) Location: head, abdomen Consistency: constant Improves with: none Worsens with: none - Related Data Previous Rx's Medication Instructions Recorded Last Taken Type LORazepam [Ativan] 0.5 mg PO Q6H PRN #30 tablet 02/06/17 Unknown Rx Metoprolol [Lopressor TAB] 25 mg PO BID #60 tablet 02/06/17 Unknown Rx Ciprofloxacin HCl [Ciprofloxacin 500 mg PO Q12HR 7 Days #14 tab 07/21/20 Unknown Rx TAB] HYDROcodone/APAP 5-325 [Jenks 1 - 2 each PO Q6HR PRN #10 tablet 07/24/20 Unknown Rx 5/325] Promethazine [Phenergan] 25 mg PO Q6HR PRN #20 tab 07/24/20 Unknown Rx Promethazine [Phenergan] 25 mg CA Q6HR PRN #5 supp.rect 07/24/20 Unknown Rx Ondansetron [Zofran Odt] 4 mg PO Q8HR PRN #14 tab.rapdis 07/26/20 Unknown Rx traMADoL [Ultram 50 MG tab] 50 mg PO Q4HR PRN #14 tablet 07/26/20 Unknown Rx Allergies Allergy/AdvReac Type Severity Reaction Status Date / Time aspirin Allergy Unknown Verified 07/29/20 11:16 ED Review of Systems ROS: Stated complaint: CHEST PAIN Other details as noted in HPI Constitutional: malaise, weakness Eyes: denies: eye discharge ENT: denies: epistaxis Respiratory: cough, shortness of breath Cardiovascular: denies: chest pain Gastrointestinal: abdominal pain, constipation Genitourinary: as per HPI, dysuria Musculoskeletal: myalgia Neurological: weakness ED Past Medical Hx - Past Medical History Hx Hypertension: Yes Hx Congestive Heart Failure: Yes (home O2) Hx Asthma: Yes Hx COPD: Yes Additional medical history: Slow HR, Ear clogged - Surgical History Additional Surgical History: Tubal ligation, cataract surgery - Social History Smoking Status: Unknown if ever smoked - Medications Home Medications: Home Medications Medication Instructions Recorded Confirmed Last Taken Type LORazepam [Ativan] 0.5 mg PO Q6H PRN #30 tablet 02/06/17 Unknown Rx Metoprolol [Lopressor TAB] 25 mg PO BID #60 tablet 02/06/17 Unknown Rx Ciprofloxacin HCl [Ciprofloxacin 500 mg PO Q12HR 7 Days #14 tab 07/21/20 Unknown Rx TAB] HYDROcodone/APAP 5-325 [Jenks 1 - 2 each PO Q6HR PRN #10 tablet 07/24/20 Unknown Rx 5/325] Promethazine [Phenergan] 25 mg PO Q6HR PRN #20 tab 07/24/20 Unknown Rx Promethazine [Phenergan] 25 mg CA Q6HR PRN #5 supp.rect 07/24/20 Unknown Rx Ondansetron [Zofran Odt] 4 mg PO Q8HR PRN #14 tab.rapdis 07/26/20 Unknown Rx traMADoL [Ultram 50 MG tab] 50 mg PO Q4HR PRN #14 tablet 07/26/20 Unknown Rx ED Physical Exam - General Limitations: Physical Limitation General appearance: alert, anxious, in distress, obese - Head Head exam: Present: atraumatic, normocephalic - Eye Eye exam: Present: normal appearance, PERRL, EOMI, other (Visual acuity intact to finger counting, color perception, reading at a close distance). Absent: nystagmus - ENT ENT exam: Present: normal exam, normal orophraynx, mucous membranes moist, normal external ear exam - Neck Neck exam: Present: normal inspection, full ROM. Absent: tenderness, meningismus - Respiratory Respiratory exam: Present: decreased breath sounds. Absent: respiratory distress, wheezes, rales, rhonchi, stridor - Cardiovascular Cardiovascular Exam: Present: normal rhythm, tachycardia, normal heart sounds. Absent: systolic murmur, diastolic murmur, rubs, gallop - GI/Abdominal GI/Abdominal exam: Present: soft, tenderness, other (Tenderness to palpation in the left lower quadrant). Absent: distended, guarding, rebound, rigid, pul satile mass - Extremities Exam Extremities exam: Present: normal inspection, full ROM, pedal edema (1+ edema in the bilateral lower extremities), other (2+ pulses noted in the bilateral upper and lower extremities. There is no palpable cord. negative Homans sign. Muscular compartments are soft. The pelvis is stable.). Absent: calf tenderness - Back Exam Back exam: Present: normal inspection. Absent: tenderness, CVA tenderness (R), CVA tenderness (L), paraspinal tenderness, vertebral tenderness - Neurological Exam Neurological exam: Present: alert, other (No facial droop. Tongue midline. Extraocular movements intact bilaterally. Facial sensation intact to light touc h in V1, V2, V3 distribution bilaterally. 5 and a 5 strength in 4 extremities. Sensation intact to light touch in 4 extremities.) - Psychiatric Psychiatric exam: Present: anxious - Skin Skin exam: Present: warm, dry, intact, normal color. Absent: rash ED Course Vital Signs 07/29/20 07/29/20 07/29/20 11:18 11:30 12:00 Temperature 100.3 F H Pulse Rate 100 H Respiratory 18 18 Rate Blood Pressure 139/96 O2 Sat by Pulse 93 99 81 L Oximetry 07/29/20 07/29/20 12 12:15 12:31 12:45 Temperature Pulse Rate 84 93 H 86 Respiratory 24 16 21 Rate Blood Pressure 149/82 149/82 O2 Sat by Pulse 99 68 L 96 Oximetry 07/29/20 07/29/20 07/29/20 13:01 13:15 13:31 Temperature Pulse Rate 92 H 88 95 H Respiratory 14 21 17 Rate Blood Pressure 158/83 158/83 136/85 O2 Sat by Pulse 94 92 96 Oximetry 07/29/20 07/29/20 07/29/20 13:45 14:01 14:15 Temperature Pulse Rate 84 93 H 88 Respiratory 17 21 21 Rate Blood Pressure 136/85 138/75 138/75 O2 Sat by Pulse 94 93 91 Oximetry 07/29/20 07/29/20 14:30 14:45 Temperature Pulse Rate 98 H 80 Respiratory 22 25 H Rate Blood Pressure 148/100 148/100 O2 Sat by Pulse 87 93 Oximetry - Reevaluation(s) Reevaluation #1: 07/29/20 14:02 Differential diagnosis, including but not limited to: Central vertigo, peripheral vertigo, pneumonia, urinary tract infection, COVID-19, intra- abdominal infection, colitis, diverticulitis, UTI, constipation Assessment and plan: 60-year-old female with hypoglycemia, tachycardia, low- grade fever, presenting during the Covid pandemic with multiple complaints. Complaint #1, nonspecific sensation of headache and dizziness. No focal deficits noted on neurologic examination. Her examination is not suggestive or consistent with a large vessel occlusion at this time. Patient is not sure if she woke up with symptoms or has been having them intermittently over the past few days. She is not a TPA candidate given the aforementioned. Check CT scan of the brain, treat with meclizine, Reglan, reassess. Complaint #2, abdominal pain. Suspect constipation. Urinalysis reviewed and appreciated, was recently started on ciprofloxacin. Place patient on isolation given fever, and hypoglycemia. Check basic laboratory studies to risk stratify for cytokine storm. Place patient on Accu-Cheks every 1 hour, dextrose as needed, and feed patient. Anticipate admission for supportive care for hypoglycemia, hypoxia, as the pat ient does not appear to be able to care for herself independently. This is the patient's fourth visit to this department within the past 2 weeks. 07/29/20 14:04 07/29/20 14:05 07/29/20 16:34 CT scan of the brain negative for acute findings. CT scan of the abdomen pelvis negative for acute findings. Laboratory studies reviewed and appreciated. Patient able to eat without difficulty. No further episodes of hypoglycemia. Reevaluation #2: 07/29/20 17:07 Dr Tyrese Mckeon to admit ED Medical Decision Making - Lab Data Result diagrams: 07/29/20 13:24 07/29/20 13:24 Vital Signs 07/29/20 07/29/20 07/29/20 11:18 11:30 12:00 Temperature 100.3 F H Pulse Rate 100 H Respiratory 18 18 Rate Blood Pressure 139/96 O2 Sat by Pulse 93 99 81 L Oximetry 07/29/20 07/29/20 07/29/20 12:15 12:31 12:45 Temperature Pulse Rate 84 93 H 86 Respiratory 24 16 21 Rate Blood Pressure 149/82 149/82 O2 Sat by Pulse 99 68 L 96 Oximetry 07/29/20 13:01 Temperature Pulse Rate 92 H Respiratory 14 Rate Blood Pressure 158/83 O2 Sat by Pulse 94 Oximetry Lab Results 07/29/20 07/29/20 07/29/20 Range/Units 12:19 12:33 13:07 POC Glucose 60 L 76 (70-105) mg/dL Urine Color Yellow (Yellow) Urine Turbidity Slightly-cloudy (Clear) Urine pH 5.0 (5.0-7.0) Ur Specific Campbell 1.023 (1.003-1.030) Urine Protein 30 mg/dl (Negative) mg/dL Urine Glucose (UA) Neg (Negative) mg/dL Urine Ketones Neg (Negative) mg/dL Urine Blood Neg (Negative) Urine Nitrite Neg (Negative) Urine Bilirubin Neg (Negative) Urine Urobilinogen 2.0 (<2.0) mg/dL Ur Leukocyte Esterase Tr (Negative) Urine WBC (Auto) 7.0 H (0.0-6.0) /HPF Urine RBC (Auto) 6.0 (0.0-6.0) /HPF U Epithel Cells (Auto) 16.0 H (0-13.0) /HPF Urine Bacteria (Auto) 1+ (Negative) /HPF Urine Mucus 2+ /HPF - EKG Data -: EKG Interpreted by Pa EKG shows normal: sinus rhythm Rate: normal - EKG Data 07/29/20 14:01 The EKG today is compared to prior EKG from June 2020. Normal sinus, 81 bpm, left axis deviation, left anterior fascicular block, low voltage, motion artifact. The QTC is prolonged at 450 ms. The EKG is abnormal. The EKG is not a STEMI. It is unchanged from the prior EKG from June 2020. - Radiology Data Radiology results: pending, report reviewed, image reviewed Print Report Referring Physician: MIGUEL GUILLORY Patient Name: CHHAYA BOYLE Date of : 1960 Sex: Female Report Date: 2020-07-29 Report Status: Finalized Findings [facility] [address] [place] [address] XRay Report Signed Patient: CHHAYA BOYLE MR#: [id number] : 1960 Acct:[id number] Age/Sex: 60 / F ADM Date: 07/29/20 Loc: ED Attending Dr: Duglas chapa Physician: MIGUEL GUILLORY MD Date of Service: 07/29/20 Procedure(s): XR chest 1V ap Accession Number(s): [id number] cc: MIGUEL GUILLORY MD Fluoro Time In Minutes: CHEST 1 VIEW 07/29/2020 12:29 PM INDICATION / CLINICAL INFORMATION: weakness. COMPARISON: Chest one view from 07/26/2020. FINDINGS: SUPPORT DEVICES: None. HEART / MEDIASTINUM: No significant abnormality. LUNGS / PLEURA: Reduced lung volumes are again seen with improved bilateral interstitial opacities. No significant pleural effusion. No pneumothorax. ADDITIONAL FINDINGS: No significant additional findings. IMPRESSION: Improved aeration of the lungs. Signer Name: Ryan Gonsalez MD Signed: 07/29/2020 12:52 PM Workstation Name: [id number] Transcribed By: MN Dictated By: Ryan Gonsalez MD Electronically Authenticated By: Ryan Gonsalez MD Signed Date/Time: 07/29/20 1252 DD/ 1252 TD/TT: Critical care attestation.: If time is entered above; I have spent that time in minutes in the direct care of this critically ill patient, excluding procedure time. ED Disposition Clinical Impression: Suspected 2019 novel coronavirus infection, Hypoglycemia, Acute abdominal pain, Dizziness Acute headache Qualifiers: Headache type: unspecified Intractability: not intractable Qualified Code(s): R51.9 - Headache, unspecified Disposition: 09 OP ADMIT IP TO THIS HOSP Is pt being admited?: Yes Does the pt Need Aspirin: No Condition: Fair Instructions: Abdominal Pain (ED) Referrals: PRIMARY CARE, [Primary Care Provider] - 3-5 Days
[2020-07-29] MEDS ORDERED: DEXTROSE 50% IN WATER (25GM) 50 ML VIAL IV PRN (12:20)
[2020-07-29] MEDS ORDERED: DEXTROSE 50% IN WATER (25GM) 50 ML SYRINGE IV ONE (12:20)
[2020-07-29 12:49] LABS: Bacteria,Urine 1+ /HPF (Negative); Bilirubin,Urine NEG (Negative); Blood,Urine NEG (Negative); Color,Urine Yellow (Yellow); Mucus,Urine 2+ /HPF
--- NOTE | 2020-07-29 12:57 | XRay Report ---
CHEST 1 VIEW 07/29/2020 12:29 PM INDICATION / CLINICAL INFORMATION: weakness. COMPARISON: Chest one view from 07/26/2020. FINDINGS: SUPPORT DEVICES: None. HEART / MEDIASTINUM: No significant abnormality. LUNGS / PLEURA: Reduced lung volumes are again seen with improved bilateral interstitial opacities. N o significant pleural effusion. No pneumothorax. ADDITIONAL FINDINGS: No significant additional findings. IMPRESSION: Improved aeration of the lungs. Signer Name: Ryan Gonsalez MD Signed: 07/29/2020 12:52 PM Workstation Name: [id number]
[2020-07-29 14:07] LABS: Basophils # (Auto) 0.1 K/mm3 (0.0-0.1); Basophils % (Auto) 1.1 % (0.0-1.8); Eosinophils # (Auto) 0.3 K/mm3 (0.0-0.4); Eosinophils % (Auto) 4.8 % (0.0-4.3); Hematocrit 35.7 % (30.3-42.9); Hemoglobin 11.3 gm/dl (10.1-14.3); Lymphocytes # (Auto) 1.6 K/mm3 (1.2-5.4); Lymphocytes % (Auto) 25.2 % (13.4-35.0); Mean Corpuscular HGB Conc 32 % (30-34); Mean Corpuscular Volume 92 fl (79-97); Monocytes # (Auto) 0.5 K/mm3 (0.0-0.8); Monocytes % (Auto) 7.8 % (0.0-7.3); Platelet Count 225 K/mm3 (140-440); Red Cell Distribution Width 17.1 % (13.2-15.2)
[2020-07-29 14:20] LABS: INR 1.09 (0.87-1.13)
[2020-07-29 14:35] LABS: BUN/Creatinine Ratio 13; Blood Urea Nitrogen 12 mg/dL (7-17); Calcium 7.9 mg/dL (8.4-10.2); Hemolysis Index 4
--- NOTE | 2020-07-29 15:40 | Cat Scan Report ---
CT HEAD WITHOUT CONTRAST INDICATION / CLINICAL INFORMATION: dizzy weak. TECHNIQUE: All CT scans at this location are performed using CT dose reduction for ALARA by means of automated e xposure control. COMPARISON: Head CT 07/26/2020, 07/24/2020 and 02/06/2017 FINDINGS: HEMORRHAGE: No evidence of intracranial hemorrhage or extra-axial fluid collection. EXTRA-AXIAL SPACES: Cortical sulci, sylvian fissures and basilar cisterns have an unremarkable appear ance. VENTRICULAR SYSTEM: The third and lateral ventricles are of normal size and configuration. CEREBRAL PARENCHYMA: No areas of abnormal brain parenchymal attenuation are identified. There is no i ndication of recent infarction. MIDLINE SHIFT OR HERNIATION: There is no mass effect. CEREBELLUM / BRAINSTEM: Brainstem and cerebellum have an unremarkable appearance. MIDLINE STRUCTURES:No abnormalities of the pituitary gland or pineal region are identified. INTRACRANIAL VESSELS: Calcified atherosclerotic plaque is seen along the course of the cavernous segm ents of both internal carotid arteries. ORBITS: Patient is status post left-sided cataract surgery. Is evidence of a remote medial wall blowo ut fracture on the right. This finding is stable since 02/06/2017. The orbits have an otherwise unrema rkable appearance. SOFT TISSUES of HEAD: No significant abnormality. CALVARIUM: Evaluation of bone windows reveals no abnormalities. PARANASAL SINUSES / MASTOID AIR CELLS: Visualized portions of the paranasal sinuses are free from inf lammatory mucosal disease. Mastoid air cells are normally pneumatized. ADDITIONAL FINDINGS: None. IMPRESSION: 1. No intracranial abnormalities are identified on head CT without contrast. There is no interval danni nge in comparison to previous studies dating back through 02/06/2017. Signer Name: Phoenix Garza MD Signed: 07/29/2020 3:35 PM Workstation Name: [id number]
--- NOTE | 2020-07-29 15:47 | Cat Scan Report ---
CT abdomen pelvis wo con INDICATION: acute llq abd pain. TECHNIQUE: All CT scans at this location are performed using the following dose modulation technique: Automated exposure control. CONTRAST: None. COMPARISON: 07/21/2020. CT ABDOMEN: The parenchymal organs are unchanged in appearance. Negative for abdominal mass, fluid or inflammation. The bowel is not dilated or thickened. Scattered noninflamed colonic diverticula are p resent. A fat-containing umbilical hernia is small/moderate. CT PELVIS: Negative for mass, fluid or inflammation. The appendix is normal. Mild mosaic attenuation is again seen at the lung bases. 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 IMPRESSION: 1. Noninflamed colonic diverticulosis. 2. Negative for obstruction or localized inflammation. 3. Groundglass attenuation the lung bases. This is most commonly seen in the setting of air trapping. 4. 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 Signer Name: Felton Cooper MD Signed: 07/29/2020 3:43 PM Workstation Name: [id number]
[2020-07-29] MEDS ORDERED: NITROFURANTOIN MONOHYD/M-CRYST 100 MG CAP PO ONE (16:35)
[2020-07-29] MEDS ORDERED: DOCUSATE SODIUM 100 MG CAP ONE (18:50)
[2020-07-29] MEDS: DOCUSATE SODIUM 100 MG CAP PO SCH ×2 (18:52→21:36)
[2020-07-29] MEDS ORDERED: HYDROmorphone 1 MG/1 ML INJ ONE ×2 (20:58→22:11)
[2020-07-29] MEDS: HYDROmorphone 1 MG/1 ML INJ IV PRN (21:37)
--- NOTE | 2020-07-29 23:49 | History and Physical Report ---
History of Present Illness Date of examination: 07/29/20 Date of admission: 07/29/20 17:07 Chief complaint: Low blood glucose level History of present illness: 60-year-old female with history of hypertension morbid obesity, CHF, COPD on oxygen comes to the ER for diffuse abdominal cramping, low-grade fever, borderline hypoxia and hypoglycemia. No body aches. No exposure to coronavirus. - Past Medical History Hx Hypertension: Yes Hx Congestive Heart Failure: Yes (home O2) Hx Asthma: Yes Hx COPD: Yes Additional medical history: Slow HR, Ear clogged - Surgical History Additional Surgical History: Tubal ligation, cataract surgery - Social History Smoking Status: Unknown if ever smoked - Medications Home Medications: Home Medications Medication Instructions Recorded Confirmed Last Taken Type LORazepam [Ativan] 0.5 mg PO Q6H PRN #30 tablet 02/06/17 Unknown Rx Metoprolol [Lopressor TAB] 25 mg PO BID #60 tablet 02/06/17 Unknown Rx Ciprofloxacin HCl [Ciprofloxacin 500 mg PO Q12HR 7 Days #14 tab 07/21/20 Unknown Rx TAB] HYDROcodone/APAP 5-325 [[place] 1 - 2 each PO Q6HR PRN #10 tablet 07/24/20 Unknown Rx 5/325] Promethazine [Phenergan] 25 mg PO Q6HR PRN #20 tab 07/24/20 Unknown Rx Promethazine [Phenergan] 25 mg WA Q6HR PRN #5 supp.rect 07/24/20 Unknown Rx Ondansetron [Zofran Odt] 4 mg PO Q8HR PRN #14 tab.rapdis 07/26/20 Unknown Rx traMADoL [Ultram 50 MG tab] 50 mg PO Q4HR PRN #14 tablet 07/26/20 Unknown Rx Review of Systems ROS: Stated complaint: Shortness of breath and low blood glucose level Other details as noted in HPI Constitutional: malaise, weakness Eyes: denies: eye discharge ENT: denies: epistaxis Respiratory: cough, shortness of breath Cardiovascular: denies: chest pain Gastrointestinal: abdominal pain, constipation Genitourinary: as per HPI, dysuria Musculoskeletal: myalgia Neurological: weakness Medications and Allergies Allergies Allergy/AdvReac Type Severity Reaction Status Date / Time aspirin Allergy Unknown Verified 07/29/20 11:16 Home Medications Medication Instructions Recorded Confirmed Last Taken Type LORazepam [Ativan] 0.5 mg PO Q6H PRN #30 tablet 02/06/17 Unknown Rx Metoprolol [Lopressor TAB] 25 mg PO BID #60 tablet 02/06/17 Unknown Rx Ciprofloxacin HCl [Ciprofloxacin 500 mg PO Q12HR 7 Days #14 tab 07/21/20 Unknown Rx TAB] HYDROcodone/APAP 5-325 [[place] 1 - 2 each PO Q6HR PRN #10 tablet 07/24/20 Unknown Rx 5/325] Promethazine [Phenergan] 25 mg PO Q6HR PRN #20 tab 07/24/20 Unknown Rx Promethazine [Phenergan] 25 mg [place] Q6HR PRN #5 supp.rect 07/24/20 Unknown Rx Ondansetron [Zofran Odt] 4 mg PO Q8HR PRN #14 tab.rapdis 07/26/20 Unknown Rx traMADoL [Ultram 50 MG tab] 50 mg PO Q4HR PRN #14 tablet 07/26/20 Unknown Rx Active Meds: Active Medications Dextrose (D50w (25gm) Vial) 50 gm IV Q30MIN PRN; Protocol PRN Reason: Hypoglycemia Docusate Sodium (Colace) 100 mg PO BID SIERRA Last Admin: 07/29/20 21:36 Dose: Not Given Documented by: Hydromorphone HCl (Dilaudid) 0.5 mg IV Q3H PRN PRN Reason: Pain , Severe (7-10) Last Admin: 07/29/20 21:37 Dose: 0.5 mg Documented by: Exam - Constitutional Vitals: Temp Pulse Resp BP Pulse Ox 100.3 F H 127 H 22 128/93 99 07/29/20 11:18 07/29/20 15:45 07/29/20 15:45 07/29/20 17:45 07/29/20 17:45 General appearance: Present: no acute distress, well-nourished - EENT Eyes: Present: PERRL ENT: hearing intact, clear oral mucosa - Neck Neck: Present: supple, normal ROM - Respiratory Respiratory effort: normal Respiratory: bilateral: CTA - Cardiovascular Heart rate: 78 Rhythm: regular Heart Sounds: Present: S1 & S2. Absent: rub, click - Extremities Extremities: pulses symmetrical, No edema Peripheral Pulses: within normal limits - Abdominal General gastrointestinal: Present: soft, non-tender, non-distended, normal bowel sounds Female genitourinary: Present: normal - Integumentary Integumentary: Present: clear, warm, dry - Musculoskeletal Musculoskeletal: gait normal, strength equal bilaterally - Psychiatric Psychiatric: appropriate mood/affect, intact judgment & insight - Neurologic Neurologic: CNII-XII intact, moves all extremities HEART Score - HEART Score History: Slightly suspicious Age: 45-65 Risk factors: 1-2 risk factors Troponin: < normal limit - Critical Actions Critical Actions: 0-3 pts:0.9-1.7%risk of adverse cardiac event.Candidate for discharge Results - Labs CBC & Chem 7: 07/30/20 05:36 07/30/20 05:36 Labs: Laboratory Last Values WBC 6.5 K/mm3 (4.5-11.0) 07/29/20 13:24 RBC 3.90 M/mm3 (3.65-5.03) 07/29/20 13:24 Hgb 11.3 gm/dl (10.1-14.3) 07/29/20 13:24 Hct 35.7 % (30.3-42.9) 07/29/20 13:24 MCV 92 fl (79-97) 07/29/20 13:24 MCH 29 pg (28-32) 07/29/20 13:24 MCHC 32 % (30-34) 07/29/20 13:24 RDW 17.1 % (13.2-15.2) H 07/29/20 13:24 Plt Count 225 K/mm3 (140-440) 07/29/20 13:24 Lymph % (Auto) 25.2 % (13.4-35.0) 07/29/20 13:24 [place] % (Auto) 7.8 % (0.0-7.3) H 07/29/20 13:24 Eos % (Auto) 4.8 % (0.0-4.3) H 07/29/20 13:24 Baso % (Auto) 1.1 % (0.0-1.8) 07/29/20 13:24 Lymph # (Auto) 1.6 K/mm3 (1.2-5.4) 07/29/20 13:24 [place] # (Auto) 0.5 K/mm3 (0.0-0.8) 07/29/20 13:24 Eos # (Auto) 0.3 K/mm3 (0.0-0.4) 07/29/20 13:24 Baso # (Auto) 0.1 K/mm3 (0.0-0.1) 07/29/20 13:24 Seg Neutrophils % 61.1 % (40.0-70.0) 07/29/20 13:24 Seg Neutrophils # 4.0 K/mm3 (1.8-7.7) 07/29/20 13:24 PT 14.0 Sec. (12.2-14.9) 07/29/20 13:24 INR 1.09 (0.87-1.13) 07/29/20 13:24 Sodium 144 mmol/L (137-145) 07/29/20 13:24 Potassium 3.8 mmol/L (3.6-5.0) 07/29/20 13:24 Chloride 104.7 mmol/L (98-107) 07/29/20 13:24 Carbon Dioxide 29 mmol/L (22-30) 07/29/20 13:24 Anion Gap 14 mmol/L 07/29/20 13:24 BUN 12 mg/dL (7-17) 07/29/20 13:24 Creatinine 0.9 mg/dL (0.6-1.2) 07/29/20 13:24 Estimated GFR > 60 ml/min 07/29/20 13:24 BUN/Creatinine Ratio 13 % 07/29/20 13:24 Glucose 70 mg/dL (65-100) 07/29/20 13:24 POC Glucose 78 mg/dL (70-105) 07/29/20 21:48 Calcium 7.9 mg/dL (8.4-10.2) L 07/29/20 13:24 Magnesium 1.90 mg/dL (1.7-2.3) 07/29/20 13:24 Ferritin 98.7 ng/mL (10.0-200.0) 07/29/20 13:24 Lactate Dehydrogenase 315 units/L (91-180) H 07/29/20 13:24 Total Creatine Kinase 63 units/L (30-135) 07/29/20 13:24 C-Reactive Protein 1.30 mg/dL (0.00-1.30) 07/29/20 13:24 Urine Color Yellow (Yellow) 07/29/20 12:33 Urine Turbidity Slightly-cloudy (Clear) 07/29/20 12:33 Urine pH 5.0 (5.0-7.0) 07/29/20 12:33 Ur Specific [place] 1.023 (1.003-1.030) 07/29/20 12:33 Urine Protein 30 mg/dl mg/dL (Negative) 07/29/20 12:33 Urine Glucose (UA) Neg mg/dL (Negative) 07/29/20 12:33 Urine Ketones Neg mg/dL (Negative) 07/29/20 12:33 Urine Blood Neg (Negative) 07/29/20 12:33 Urine Nitrite Neg (Negative) 07/29/20 12:33 Urine Bilirubin Neg (Negative) 07/29/20 12:33 Urine Urobilinogen 2.0 mg/dL (<2.0) 07/29/20 12:33 Ur Leukocyte Esterase Tr (Negative) 07/29/20 12:33 Urine WBC (Auto) 7.0 /HPF (0.0-6.0) H 07/29/20 12:33 Urine RBC (Auto) 6.0 /HPF (0.0-6.0) 07/29/20 12:33 U Epithel Cells (Auto) 16.0 /HPF (0-13.0) H 07/29/20 12:33 Urine Bacteria (Auto) 1+ /HPF (Negative) 07/29/20 12:33 Urine Mucus 2+ /HPF 07/29/20 12:33 Short CBC 07/29/20 07/30/20 Range/Units 13:24 05:36 WBC 6.5 5.8 (4.5-11.0) K/mm3 Hgb 11.3 10.6 (10.1-14.3) gm/dl Hct 35.7 33.1 (30.3-42.9) % Plt Count 225 210 (140-440) K/mm3 BMP 07/29/20 07/30/20 13:24 05:36 Sodium 144 147 H Potassium 3.8 3.8 Chloride 104.7 106.9 Carbon Dioxide 29 27 BUN 12 13 Creatinine 0.9 0.9 Glucose 70 108 H Calcium 7.9 L 7.2 L Cardiac Enzymes 07/29/20 Range/Units 13:24 Total Creatine Kinase 63 (30-135) units/L Liver Function 07/30/20 Range/Units 05:36 Total Bilirubin < 0.20 (0.1-1.2) mg/dL AST 13 (5-40) units/L ALT 17 (7-56) units/L Alkaline Phosphatase 75 (35-129) units/L Albumin 3.4 L (3.9-5) g/dL Urine 07/29/20 Range/Units 12:33 Urine Color Yellow (Yellow) Urine pH 5.0 (5.0-7.0) Ur Specific [place] 1.023 (1.003-1.030) Urine Protein 30 mg/dl (Negative) mg/dL Urine Glucose (UA) Neg (Negative) mg/dL Microbiology: Microbiology 07/29/20 13:24 Peripheral/Venous Blood Culture - Preliminary Culture in Progress 07/29/20 13:24 Peripheral/Venous Blood Culture - Preliminary Culture in Progress - Imaging and Cardiology Venous US: report reviewed Imaging and Cardiology: Chest x-ray SUPPORT DEVICES: None. HEART / MEDIASTINUM: No significant abnormality. LUNGS / PLEURA: Reduced lung volumes are again seen with improved bilateral interstitial opacities. No significant pleural effusion. No pneumothorax. ADDITIONAL FINDINGS: No significant additional findings. IMPRESSION: Improved aeration of the lungs. CT abdomen IMPRESSION: 1. Noninflamed colonic diverticulosis. 2. Negative for obstruction or localized inflammation. 3. Groundglass attenuation the lung bases. This is most commonly seen in the setting of air trapping. 4. 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 Signer Name: Felton Cooper Holder/IV: IV Catheter Type [Left INT / Saline Lock Antecubital] Assessment and Plan Advance Directives: Yes Plan of care discussed with patient/family: Yes - Patient Problems (1) Hypoglycemia Current Visit: Yes Status: Acute Plan to address problem: Reason unclear patient did not eat for a long time A1c is 5.7. Not a known diabetic will admit for observation for 23 hours with D5W normal saline Accu- Cheks before meals at bedtime (2) Suspected 2019 novel coronavirus infection Current Visit: Yes Status: Acute Plan to address problem: Coronavirus PCR ordered Groundglass changes on the abdominal CAT scan but chest x-ray was normal Coronavirus unlikely (3) Hypertension Current Visit: Yes Status: Chronic Qualifiers: Hypertension type: essential hypertension Qualified Code(s): I10 - Essential (primary) hypertension Plan to address problem: Continue metoprolol (4) Morbid obesity Current Visit: Yes Status: Chronic Plan to address problem: Patient to be given referral to Dr. Monreal-bariatric surgery department (5) DVT prophylaxis Current Visit: Yes Status: Acute Plan to address problem: Heparin 5000 every 12 and GI prophylaxis
[2020-07-29] MEDS ORDERED: traMADol 50 MG TAB PO PRN (23:55)
[2020-07-29] MEDS ORDERED: ONDANSETRON 4 MG ODT TAB PO PRN (23:55)
[2020-07-29] MEDS ORDERED: ONDANSETRON 4 MG/2 ML INJ IV PRN (23:56)
[2020-07-29] MEDS ORDERED: ACETAMINOPHEN 325 MG TAB PO PRN (23:56)
[2020-07-30] MEDS: INSULIN LISPRO 100 UNIT/ML VIAL 3 mL SUB-Q SCH ×5 (01:30→22:44)
[2020-07-30] MEDS: D5W/0.9% NACL 1,000 ML IV SCH ×2 (01:30→22:41)
[2020-07-30] MEDS: HYDROmorphone 1 MG/1 ML INJ IV PRN (03:14)
[2020-07-30 06:35] LABS: Basophils % (Auto) 0.8 % (0.0-1.8); Eosinophils # (Auto) 0.4 K/mm3 (0.0-0.4); Eosinophils % (Auto) 6.7 % (0.0-4.3); Hematocrit 33.1 % (30.3-42.9); Hemoglobin 10.6 gm/dl (10.1-14.3); Lymphocytes # (Auto) 1.7 K/mm3 (1.2-5.4); Lymphocytes % (Auto) 29.3 % (13.4-35.0); Mean Corpuscular HGB Conc 32 % (30-34); Mean Corpuscular Volume 89 fl (79-97); Monocytes # (Auto) 0.6 K/mm3 (0.0-0.8); Monocytes % (Auto) 9.8 % (0.0-7.3); Platelet Count 210 K/mm3 (140-440); Red Blood Count 3.72 M/mm3 (3.65-5.03); Red Cell Distribution Width 17.4 % (13.2-15.2)
[2020-07-30 06:58] LABS: Alanine Aminotransferase 17 units/L (7-56); Albumin 3.4 g/dL (3.9-5); BUN/Creatinine Ratio 14; Blood Urea Nitrogen 13 mg/dL (7-17); Calcium 7.2 mg/dL (8.4-10.2); Hemolysis Index 0
[2020-07-30] MEDS: DOCUSATE SODIUM 100 MG CAP PO SCH ×2 (11:47→22:43)
[2020-07-30] MEDS: METOPROLOL TARTRATE 25 MG TAB PO SCH ×2 (11:48→22:43)
--- NOTE | 2020-07-30 15:25 | Progress Note ---
Assessment and Plan - Patient Problems (1) Acute abdominal pain Current Visit: Yes Status: Acute Plan to address problem: Patient cramping has improved significantly. Work-up thus far has been unremarkable. (2) Suspected 2019 novel coronavirus infection Current Visit: Yes Status: Acute Plan to address problem: Patient was negative for coronavirus. Blood cultures thus far is come up unremarkable. And negative. (3) Hypertension Current Visit: Yes Status: Chronic Qualifiers: Hypertension type: essential hypertension Qualified Code(s): I10 - Essential (primary) hypertension Plan to address problem: Patient has fair control blood pressure continue present medical management. (4) Morbid obesity Current Visit: Yes Status: Chronic Subjective Date of service: 07/30/20 Principal diagnosis: Hypoglycemia Interval history: Patient 60-year-old male with history of hypertension morbid obesity congestive heart failure COPD O2 dependent presented with abdominal cramping fever and hypoxemia. Patient was admitted and evaluated for possible COVID-19 infection/pneumonia. Patient Covid test came back today negative. Patient is breathing better today. Objective - Constitutional Vitals: Vital Signs - 12hr 07/30/20 07/30/20 07/30/20 10:31 10:33 11:48 Pulse Rate 81 81 Respiratory 22 Rate Blood Pressure 115/72 115/72 O2 Sat by Pulse 97 Oximetry General appearance: Present: no acute distress, well-nourished - EENT Eyes: PERRL, EOM intact ENT: hearing intact, clear oral mucosa Ears: bilateral: normal - Neck Neck: supple, normal ROM - Respiratory Respiratory effort: normal Respiratory: bilateral: CTA - Breasts Breasts: normal - Cardiovascular Rhythm: regular Heart Sounds: Present: S1 & S2. Absent: gallop, rub Extremities: pulses intact, No edema, normal color, Full ROM - Gastrointestinal General gastrointestinal: Present: soft, non-tender, non-distended, normal bowel sounds - Genitourinary Female genitourinary: normal - Integumentary Integumentary: clear, warm, dry - Musculoskeletal Musculoskeletal: 1, strength equal bilaterally - Neurologic Neurologic: moves all extremities - Psychiatric Psychiatric: memory intact, appropriate mood/affect, intact judgment & insight - Labs CBC & Chem 7: 07/30/20 05:36 07/30/20 05:36 Labs: Abnormal lab results 07/30/20 07/30/20 07/30/20 Range/Units 05:36 05:36 05:57 RDW 17.4 H (13.2-15.2) % [place] % (Auto) 9.8 H (0.0-7.3) % Eos % (Auto) 6.7 H (0.0-4.3) % Sodium 147 H (137-145) mmol/L Glucose 108 H (65-100) mg/dL POC Glucose 117 H (70-105) mg/dL Calcium 7.2 L (8.4-10.2) mg/dL Total Protein 6.0 L (6.3-8.2) g/dL Albumin 3.4 L (3.9-5) g/dL HEART Score - HEART Score Age: 45-65 Risk factors: 1-2 risk factors Troponin: < normal limit - Critical Actions Critical Actions: 0-3 pts:0.9-1.7%risk of adverse cardiac event.Candidate for discharge
[2020-07-30] MEDS: oxyCODONE /ACETAMINOPHEN 5-325MG TAB PO PRN (22:41)
[2020-07-30] MEDS: LORazepam 0.5 MG TAB PO PRN (22:42)
[2020-07-31] MEDS: INSULIN LISPRO 100 UNIT/ML VIAL 3 mL SUB-Q SCH ×3 (05:51→10:05)
--- NOTE | 2020-07-31 09:27 | Discharge Summary ---
Providers - Providers Date of Admission: 07/29/20 17:07 Date of discharge: 07/31/20 Attending physician: BERTHA CHAVEZ none Primary care physician: TANNING DRUM OPERATOR Hospitalization Condition: Fair Pertinent studies: Abdominal CT scan. None infectious diverticulosis. No acute abnormalities some gas. No abdominal distention no obstruction. CT scan of head no intracranial abnormalities. Compared to 2016 as well. Disposition: - TO HOME OR SELFCARE - Discharge Diagnoses (1) Acute abdominal pain Status: Acute Comment: Patient symptoms resolve most likely secondary to gas. Abdominal CT scan negative. Patient had no further abdominal pain no further cramping. Most likely gas. Patient informed and understands. (2) Suspected 2019 novel coronavirus infection Status: Acute Comment: Ruled out for COVID-19. Negative test. (3) Hypertension Status: Chronic Qualifiers: Hypertension type: essential hypertension Qualified Code(s): I10 - Essential (primary) hypertension Comment: Central hypertension well controlled. (4) Morbid obesity Status: Chronic Comment: Decrease caloric intake. Exercise as able. Core Measure Documentation - Palliative Care Palliative Care/ Comfort Measures: Not Applicable - Core Measures Any of the following diagnoses?: none Exam - Constitutional Vitals: Temp Pulse Resp BP Pulse Ox 98.4 F 72 20 151/85 100 07/31/20 05:22 07/31/20 05:22 07/31/20 05:22 07/31/20 05:22 07/31/20 05:22 General appearance: Present: no acute distress, well-nourished - EENT Eyes: Present: PERRL ENT: hearing intact, clear oral mucosa - Neck Neck: Present: supple, normal ROM - Respiratory Respiratory effort: normal Respiratory: bilateral: CTA - Cardiovascular Heart Sounds: Present: S1 & S2. Absent: rub, click - Extremities Extremities: pulses symmetrical, No edema Peripheral Pulses: within normal limits - Abdominal General gastrointestinal: Present: soft, non-tender, non-distended, normal bowel sounds, other (Obese abdomen nontender. Palpated with deep palpation all quadrants no pain. Patient did have increased bowel sounds most likely gas.) Female genitourinary: Present: normal - Integumentary Integumentary: Present: clear, warm, dry - Musculoskeletal Musculoskeletal: strength equal bilaterally, generalized weakness - Psychiatric Psychiatric: appropriate mood/affect, intact judgment & insight - Neurologic Neurologic: CNII-XII intact, moves all extremities Plan Activity: up only with assistance Weight Bearing Status: Weight Bear as Tolerated Diet: low salt Follow up with: PRIMARY CARE, [Primary Care Provider] - 3-5 Days Prescriptions: Metoprolol [Lopressor TAB] 25 mg PO BID #60 tablet
[2020-07-31] MEDS: oxyCODONE /ACETAMINOPHEN 5-325MG TAB PO PRN ×2 (10:05→16:56)
[2020-07-31] MEDS: DOCUSATE SODIUM 100 MG CAP PO SCH (10:05)
[2020-07-31] MEDS: METOPROLOL TARTRATE 25 MG TAB PO SCH (10:05)
[2020-07-31] MEDS: D5W/0.9% NACL 1,000 ML IV SCH (10:09)
[2020-07-31] MEDS: HYDROmorphone 1 MG/1 ML INJ IV PRN (13:30)
[2020-07-31] MEDS ORDERED: INSULIN LISPRO 100 UNIT/ML VIAL 3 mL SUB-Q SCH (16:30)
[2020-07-31] MEDS: LORazepam 0.5 MG TAB PO PRN (16:56)
[2020-07-31 18:31] VITALS: BP 152/79
== END 2020-07-31 19:31 | disposition home or self-care (01) ==
LOC: ED 11:04 → 3A 17:07
PROVIDERS: ADMIT Internal Medicine; ATTEND Internal Medicine
DX: E16.2 Hypoglycemia, unspecified (principal); Z20.828 Contact with and (suspected) exposure to other viral communicable diseases; I11.0 Hypertensive heart disease with heart failure; I50.9 Heart failure, unspecified; R42 Dizziness and giddiness; R51.9 Headache, unspecified; R10.84 Generalized abdominal pain; E66.01 Morbid (severe) obesity due to excess calories; J44.9 Chronic obstructive pulmonary disease, unspecified; Z98.51 Tubal ligation status; Z98.49 Cataract extraction status, unspecified eye; Z79.82 Long term (current) use of aspirin; Z79.899 Other long term (current) drug therapy; Z68.43 Body mass index [BMI] 50.0-59.9, adult
CPT/HCPCS: 36415; 70450; 71045; 74176; 80048; 80053; 81001; 82550; 82728; 82962; 83036; 83615; 83735; 84145; 85025; 85610; 86140; 87040; 87076; 87086; 87116; 87186; 96361; 96374; 96375; 96376; 99285; G0378; J1170; J7042; U0003

== ENCOUNTER 2020-08-02 14:01 | Emergency (ER) | payer MEDICAID ==
--- NOTE | 2020-08-02 17:09 | Emergency Department Report ---
Blank Doc - Documentation Documentation: 60-year-old F [place] female past medical history of the diabetes and COPD re quiring home oxygen at 5 L presents to the emergency department complaining of a 1 month history of progressively worsening abdominal pain This initial assessment/diagnostic orders/clinical plan/treatment(s) is/are subject to change based on patients health status, clinical progression and re- assessment by fellow clinical providers in the ED. Further treatment and workup at subsequent clinical providers discretion. Patient/guardian urged not to elope from the ED as their condition may be serious if not clinically assessed and managed. Initial orders include: Labs, abdominal CT imaging and analgesic control
[2020-08-02 17:37] LABS: Basophils # (Auto) 0.2 K/mm3 (0.0-0.1); Basophils % (Auto) 1.9 % (0.0-1.8); Eosinophils # (Auto) 0.3 K/mm3 (0.0-0.4); Eosinophils % (Auto) 3.4 % (0.0-4.3); Hemoglobin 12.1 gm/dl (10.1-14.3); Lymphocytes # (Auto) 2.1 K/mm3 (1.2-5.4); Lymphocytes % (Auto) 26.6 % (13.4-35.0); Mean Corpuscular HGB Conc 32 % (30-34); Mean Corpuscular Volume 90 fl (79-97); Monocytes # (Auto) 0.6 K/mm3 (0.0-0.8); Monocytes % (Auto) 7.6 % (0.0-7.3); Platelet Count 205 K/mm3 (140-440); Red Blood Count 4.23 M/mm3 (3.65-5.03); Red Cell Distribution Width 17.2 % (13.2-15.2)
[2020-08-02 18:03] LABS: Alanine Aminotransferase 33 units/L (7-56); Albumin 3.5 g/dL (3.9-5); BUN/Creatinine Ratio 18; Blood Urea Nitrogen 14 mg/dL (7-17); Calcium 7.7 mg/dL (8.4-10.2); Hemolysis Index 9
--- NOTE | 2020-08-03 10:21 | Emergency Department Report ---
ED Abdominal Pain HPI - General Chief Complaint: Abdominal Pain Stated Complaint: ABDOMINAL PAIN Time Seen by Provider: 08/03/20 10:16 Source: patient Mode of arrival: Wheelchair Limitations: No Limitations - History of Present Illness Initial Comments: The patient was evaluated in the emergency department for symptoms described in the history of present illness. He/she was evaluated in the context of the global COVID-19 pandemic, which necessitated consideration that the patient might be at risk for infection with the virus that causes COVID-19. Institutional protocols and algorithms that pertain to the evaluation of patients at risk for COVID-19 are in a state of rapid change based on information released by regulatory bodies including the CDC and federal and state organizations. These policies and algorithms were followed during the patient's care in the emergency department. Please note that these policies, procedures and recommendations changed on a rapid basis. 60-year-old -Malagasy female presents to the emergency room complaining abdominal pain and nausea. Patient states that she has not had a bowel movement in months. Patient states that she had taken some Mylanta 10 yesterday and started having abdominal cramping and then since being here at the ER she had a large BM which she reported to the nurse has relieved most of her pain. Patient states that her stool is Fabrizio and very hard. Patient reports she had nausea yesterday none today. She does use home oxygen [id number] and is currently on 3 mL at home. She denies any fever chills no vomiting no chest pain shortness of breath or dysuria. MD Complaint: abdominal pain Onset/Timin -: days(s) Location: diffuse, LLQ Severity scale (0 -10): 6 Quality: cramping Consistency: intermittent Improves With: bowel movement Associated Symptoms: nausea (Has improved none today), constipation. denies: vomiting, diarrhea, fever - Related Data Previous Rx's Medication Instructions Recorded Last Taken Type LORazepam [Ativan] 0.5 mg PO Q6H PRN #30 tablet 02/06/17 Unknown Rx Ciprofloxacin HCl [Ciprofloxacin 500 mg PO Q12HR 7 Days #14 tab 07/21/20 Unknown Rx TAB] HYDROcodone/APAP 5-325 [[place] 1 - 2 each PO Q6HR PRN #10 tablet 07/24/20 Unknown Rx 5-325 mg TAB] Promethazine [Phenergan SUPPOS] 25 mg MD Q6HR PRN #5 supp.rect 07/24/20 Unknown Rx Promethazine [Phenergan] 25 mg PO Q6HR PRN #20 tab 07/24/20 Unknown Rx Acetaminophen [Acetaminophen TAB] 650 mg PO Q4H PRN tablet 07/31/20 Unknown Rx Metoprolol [Lopressor TAB] 25 mg PO BID #60 tablet 07/31/20 Unknown Rx Docusate Sodium [Colace] 100 mg PO BID PRN #60 capsule 08/03/20 Unknown Rx Polyethylene Glycol 3350 [Miralax] 17 gm PO BID PRN #357 gram 08/03/20 Unknown Rx Allergies Allergy/AdvReac Type Severity Reaction Status Date / Time aspirin Allergy Unknown Verified 07/29/20 11:16 ED Review of Systems ROS: Stated complaint: ABDOMINAL PAIN Other details as noted in HPI Comment: All other systems reviewed and negative ED Past Medical Hx - Past Medical History Previous Medical History?: Yes Hx Hypertension: Yes Hx Congestive Heart Failure: Yes Hx Diabetes: Yes Hx Asthma: Yes (Home O2) Hx COPD: Yes Additional medical history: Slow HR, Ear clogged - Surgical History Past Surgical History?: Yes Additional Surgical History: Tubal ligation, cataract surgery - Social History Smoking Status: Never Smoker Substance Use Type: None - Medications Home Medications: Home Medications Medication Instructions Recorded Confirmed Last Taken Type LORazepam [Ativan] 0.5 mg PO Q6H PRN #30 tablet 02/06/17 07/30/20 Unknown Rx Ciprofloxacin HCl [Ciprofloxacin 500 mg PO Q12HR 7 Days #14 tab 07/21/2001/12 Unknown Rx TAB] HYDROcodone/APAP 5-325 [[place] 1 - 2 each PO Q6HR PRN #10 tablet 07/24/20 07/30/20 Unknown Rx 5-325 mg TAB] Promethazine [Phenergan SUPPOS] 25 mg MD Q6HR PRN #5 supp.rect 07/24/20 07/30/20 Unknown Rx Promethazine [Phenergan] 25 mg PO Q6HR PRN #20 tab 07/24/20 07/30/20 Unknown Rx Acetaminophen [Acetaminophen TAB] 650 mg PO Q4H PRN tablet 07/31/20 Unknown Rx Metoprolol [Lopressor TAB] 25 mg PO BID #60 tablet 07/31/20 Unknown Rx Docusate Sodium [Colace] 100 mg PO BID PRN #60 capsule 08/03/20 Unknown Rx Polyethylene Glycol 3350 [Miralax] 17 gm PO BID PRN #357 gram 08/03/20 Unknown Rx ED Physical Exam - General Limitations: No Limitations General appearance: alert, obese - Head Head exam: Present: atraumatic, normocephalic - Eye Eye exam: Present: normal appearance - ENT ENT exam: Present: mucous membranes moist - Neck Neck exam: Present: full ROM - Respiratory Respiratory exam: Absent: accessory muscle use - Cardiovascular Cardiovascular Exam: Present: regular rate, normal rhythm. Absent: systolic murmur, diastolic murmur, rubs, gallop - GI/Abdominal GI/Abdominal exam: Present: soft. Absent: distended, tenderness, guarding - Back Exam Back exam: Present: normal inspection - Neurological Exam Neurological exam: Present: alert, oriented X3 - Psychiatric Psychiatric exam: Present: normal affect, normal mood - Skin Skin exam: Present: warm, dry, intact, normal color. Absent: rash ED Course Vital Signs 08/02/20 08/03/20 15:01 08:44 Temperature 97.6 F 98.2 F Pulse Rate 102 H 103 H Respiratory 20 24 Rate Blood Pressure 133/88 131/108 O2 Sat by Pulse 96 95 Oximetry ED Medical Decision Making - Lab Data Result diagrams: 08/02/20 17:21 08/02/20 17:21 - Radiology Data Radiology results: report reviewed [address] [address] XRay Report Signed Patient: CHHAYA BOYLE MR#: [id number] : 1960 Acct:[id number] Age/Sex: 60 / F ADM Date: 08/02/20 Loc: ED Attending Dr: Ordering Physician: SANTI LUCERO Date of Service: 08/03/20 Procedure(s): XR abdomen 1V ap Accession Number(s): [id number] cc: SANTI LUCREO Fluoro Time In Minutes: ABDOMEN 1 VIEW(S) INDICATION / CLINICAL INFORMATION: Left lower quadrant abdominal pain c/o constipatio. COMPARISON: None available. FINDINGS: TUBES / LINES: None. BOWEL GAS PATTERN: Scattered stool throughout the abdomen. No significant bowel distention. 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 Signer Name: Felton Cooper MD Signed: 08/03/2020 11:42 AM Workstation Name: [id number] Transcribed By: ES Dictated By: Felton Cooper MD Electronically Authenticated By: Felton Cooper MD Signed Date/Time: 08/03/20 1142 DD/ 1141 TD/TT: - Medical Decision Making 60-year-old -Malagasy female presents to the emergency room complaining abdominal pain and nausea. Patient states that she has not had a bowel movement in months. Patient states that she had taken some Mylanta 10 yesterday and started having abdominal cramping and then since being here at the ER she had a large BM which she reported to the nurse has relieved most of her pain. Patient states that her stool is Fabrizio and very hard. Patient reports she had nausea yesterday none today. She does use home oxygen [id number] and is currently on 3 mL at home. She denies any fever chills no vomiting no chest pain shortness of breath or dysuria. Will do a KUB and see if patient is constipated. KUB shows patient has 2 throughout her colon she is constipated. Patient will be discharged home on MiraLAX and Colace instructions to increase her water intake increase her fiber intake and follow-up with her primary care provider. Critical care attestation.: If time is entered above; I have spent that time in minutes in the direct care of this critically ill patient, excluding procedure time. ED Disposition Clinical Impression: Acute abdominal pain, Constipation Disposition: DC-01 TO HOME OR SELFCARE Is pt being admited?: No Does the pt Need Aspirin: No Condition: Stable Instructions: Abdominal Pain (ED), Chronic Constipation Additional Instructions: X-ray shows that you have constipation. I would like for you to take the medication as prescribed. Increase your water intake by 3 to 4 L daily. Eat green leafy vegetables apples high-fiber diet. Follow-up with your primary care provider. Prescriptions: Docusate Sodium [Colace] 100 mg PO BID PRN #60 capsule PRN Reason: Constipation Polyethylene Glycol 3350 [Miralax] 17 gm PO BID PRN #357 gram PRN Reason: Constipation Referrals: PRIMARY CARE, [Primary Care Provider] - 3-[address] [facility] [Provider Group] - 3-5 Days
--- NOTE | 2020-08-03 11:46 | XRay Report ---
ABDOMEN 1 VIEW(S) INDICATION / CLINICAL INFORMATION: Left lower quadrant abdominal pain c/o constipatio. COMPARISON: None available. FINDINGS: TUBES / LINES: None. BOWEL GAS PATTERN: Scattered stool throughout the abdomen. No significant bowel distention. 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 Signer Name: Felton Cooper MD Signed: 08/03/2020 11:42 AM Workstation Name: [id number]
[2020-08-03 12:36] VITALS: BP 118/85
== END 2020-08-03 12:37 | disposition home or self-care (01) ==
LOC: ED 14:01
DX: R10.84 Generalized abdominal pain (principal); K59.00 Constipation, unspecified; Z88.6 Allergy status to analgesic agent
CPT/HCPCS: 36415; 74018; 80053; 83690; 85025

== ENCOUNTER 2020-08-05 10:33 | Emergency (ER) | payer MEDICAID ==
--- NOTE | 2020-08-05 12:41 | XRay Report ---
CHEST 1 VIEW INDICATION: SOB. COMPARISON: 07/29/2020 FINDINGS: Support devices: None. Heart: Normal. Lungs/Pleura: Low lung volumes and mild interstitial opacities persist. No new findings. IMPRESSION: 1. No significant change. Signer Name: Adin Newman MD Signed: 08/05/2020 12:37 PM Workstation Name: [id number]
--- NOTE | 2020-08-05 12:52 | Emergency Department Report ---
ED General Adult HPI - General Chief complaint: Dyspnea/Respdistress Stated complaint: STOMACH PAIN Time Seen by Provider: 08/05/20 12:07 Source: patient, EMS Mode of arrival: Stretcher Limitations: No Limitations - History of Present Illness Initial comments: 60-year-old female, history of COPD, on 3 L home O2, presents to ED for evaluation. Patient is from [place] and is supposed to be on home O2, however her tank ran out. Patient states she has been at home with treatment for approximately 1 month. Patient states her oxygen is usually delivered by [facility]. EMS was called because patient was feeling overheated and short of breath. When the medics arrived they discovered that her oxygen tank was empty. Once patient was provided with O2 her symptoms resolved. Patient is feeling much better at this time. She also reports left lower quadrant pain that has been ongoing x3 months. Patient had an abdominal CT that was unremarkable 1 we ek ago. Patient was also seen again 3 days ago as of abdominal pain. She had a negative work-up, including abdominal x-rays, at that time. -: This afternoon Consistency: now resolved Improves with: other (Oxygen) Associated Symptoms: shortness of breath. denies: chest pain, cough, fever/chills - Related Data Previous Rx's Medication Instructions Recorded Last Taken Type LORazepam [Ativan] 0.5 mg PO Q6H PRN #30 tablet 02/06/17 Unknown Rx Ciprofloxacin HCl [Ciprofloxacin 500 mg PO Q12HR 7 Days #14 tab 07/21/20 Unknown Rx TAB] HYDROcodone/APAP 5-325 [[place] 1 - 2 each PO Q6HR PRN #10 tablet 07/24/20 Unknown Rx 5-325 mg TAB] Promethazine [Phenergan SUPPOS] 25 mg CO Q6HR PRN #5 supp.rect 07/24/20 Unknown Rx Promethazine [Phenergan] 25 mg PO Q6HR PRN #20 tab 07/24/20 Unknown Rx Acetaminophen [Acetaminophen TAB] 650 mg PO Q4H PRN tablet 07/31/20 Unknown Rx Metoprolol [Lopressor TAB] 25 mg PO BID #60 tablet 07/31/20 Unknown Rx Docusate Sodium [Colace] 100 mg PO BID PRN #60 capsule 08/03/20 Unknown Rx Polyethylene Glycol 3350 [Miralax] 17 gm PO BID PRN #357 gram 08/03/20 Unknown Rx Allergies Allergy/AdvReac Type Severity Reaction Status Date / Time aspirin Allergy Unknown Verified 07/29/20 11:16 ED Review of Systems ROS: Stated complaint: STOMACH PAIN Other details as noted in HPI Comment: All other systems reviewed and negative Constitutional: denies: chills, fever Respiratory: shortness of breath. denies: cough Cardiovascular: denies: chest pain ED Past Medical Hx - Past Medical History Previous Medical History?: Yes Hx Hypertension: Yes Hx Congestive Heart Failure: Yes Hx Diabetes: Yes Hx Asthma: Yes (Home O2) Hx COPD: Yes Additional medical history: Slow HR, Ear clogged - Surgical History Past Surgical History?: Yes Additional Surgical History: Tubal ligation, cataract surgery - Social History Smoking Status: Never Smoker Substance Use Type: None - Medications Home Medications: Home Medications Medication Instructions Recorded Confirmed Last Taken Type LORazepam [Ativan] 0.5 mg PO Q6H PRN #30 tablet 02/06/17 07/30/20 Unknown Rx Ciprofloxacin HCl [Ciprofloxacin 500 mg PO Q12HR 7 Days #14 tab 07/21/20 07/30/20 Unknown Rx TAB] HYDROcodone/APAP 5-325 [[place] 1 - 2 each PO Q6HR PRN #10 tablet 07/24/2007/30 Unknown Rx 5-325 mg TAB] Promethazine [Phenergan SUPPOS] 25 mg CO Q6HR PRN #5 supp.rect 07/24/20 07/30/20 Unknown Rx Promethazine [Phenergan] 25 mg PO Q6HR PRN #20 tab 07/24/20 07/30/20 Unknown Rx Acetaminophen [Acetaminophen TAB] 650 mg PO Q4H PRN tablet 07/31/20 Unknown Rx Metoprolol [Lopressor TAB] 25 mg PO BID #60 tablet 07/31/20 Unknown Rx Docusate Sodium [Colace] 100 mg PO BID PRN #60 capsule 08/03/20 Unknown Rx Polyethylene Glycol 3350 [Miralax] 17 gm PO BID PRN #357 gram 08/03/20 Unknown Rx ED Physical Exam - General Limitations: No Limitations General appearance: alert, in no apparent distress, obese - Head Head exam: Present: atraumatic, normocephalic - Eye Eye exam: Present: normal appearance, EOMI - ENT ENT exam: Present: mucous membranes moist - Neck Neck exam: Present: normal inspection - Respiratory Respiratory exam: Present: normal lung sounds bilaterally. Absent: respiratory distress - Cardiovascular Cardiovascular Exam: Present: regular rate, normal rhythm - GI/Abdominal GI/Abdominal exam: Present: soft. Absent: distended, tenderness - Extremities Exam Extremities exam: Present: normal inspection - Neurological Exam Neurological exam: Present: alert, oriented X3 - Psychiatric Psychiatric exam: Present: normal affect, normal mood - Skin Skin exam: Present: warm, dry, intact, normal color ED Course Vital Signs 08/05/20 08/05/20 08/05/20 10:37 12:23 12:30 Temperature 98.8 F Pulse Rate 102 H 86 Respiratory 18 16 Rate Blood Pressure 112/88 145/95 145/95 O2 Sat by Pulse 95 97 Oximetry 08/05/20 08/05/20 08/05/20 12:46 13:00 13:16 Temperature Pulse Rate 84 84 92 H Respiratory 26 H 16 16 Rate Blood Pressure 151/96 149/100 159/96 O2 Sat by Pulse 98 100 97 Oximetry 08/05/20 08/05/20 08/05/20 13:30 13:46 14:00 Temperature Pulse Rate 84 88 86 Respiratory 14 18 12 Rate Blood Pressure 144/86 160/95 137/95 O2 Sat by Pulse 97 99 99 Oximetry 08/05/20 08/05/20 08/05/20 14:16 14:30 14:45 Temperature Pulse Rate 91 H 89 94 H Respiratory 16 17 18 Rate Blood Pressure 133/99 150/102 148/98 O2 Sat by Pulse 98 100 100 Oximetry 08/05/20 08/05/20 08/05/20 15:01 15:15 15:31 Temperature Pulse Rate 74 74 79 Respiratory 15 17 16 Rate Blood Pressure 160/82 160/82 153/78 O2 Sat by Pulse 97 100 100 Oximetry 08/05/20 08/05/20 08/05/20 15:45 16:01 16:15 Temperature Pulse Rate 92 H 78 75 Respiratory 16 22 16 Rate Blood Pressure 153/78 143/84 143/84 O2 Sat by Pulse 98 99 99 Oximetry 08/05/20 08/05/20 08/05/20 16:31 16:45 17:01 Temperature Pulse Rate 95 H 84 101 H Respiratory 22 15 14 Rate Blood Pressure 158/83 158/83 138/96 O2 Sat by Pulse 97 100 73 L Oximetry 08/05/20 08/05/20 08/05/20 17:15 17:31 17:45 Temperature Pulse Rate 97 H 94 H 97 H Respiratory 13 20 24 Rate Blood Pressure 123/84 122/84 129/86 O2 Sat by Pulse 97 97 Oximetry 08/05/20 08/05/20 08/05/20 18:00 18:15 18:31 Temperature Pulse Rate 90 91 H 88 Respiratory 17 16 22 Rate Blood Pressure 123/78 123/78 119/78 O2 Sat by Pulse 97 97 98 Oximetry ED Medical Decision Making - Radiology Data Radiology results: report reviewed, image reviewed - Medical Decision Making Patient presents to ED secondary to oxygen tank running out. History of COPD. Chest x-ray is normal. She also reports that she is having some abdominal pain. This abdominal pain is chronic and has been going on for several months. Patient has already had a work-up as recently as 1 week ago in which she had CT abdomen pelvis that only showed diverticulosis. Patient reports relief of pain with Bentyl here in ER today. Patient has been seen by case management who has obtained an oxygen change for patient. Patient is okay for discharge home and will be going back to personal care. Critical care attestation.: If time is entered above; I have spent that time in minutes in the direct care of this critically ill patient, excluding procedure time. ED Disposition Clinical Impression: Chronic abdominal pain, COPD (chronic obstructive pulmonary disease) Disposition: - TO HOME OR SELFCARE Is pt being admited?: No Condition: Stable Instructions: Chronic Obstructive Pulmonary Disease (ED) Referrals: PRIMARY CAREMD [Primary Care Provider] - 3-5 Days Time of Disposition: 18:00
[2020-08-05] MEDS ORDERED: DICYCLOMINE 20 MG TAB PO ONE (14:14)
[2020-08-06] MEDS ORDERED: SODIUM CHLORIDE 0.9% 1000 ML 0 ML ONE (02:12)
[2020-08-06 08:02] VITALS: BP 177/94
[2020-08-06] MEDS ORDERED: ACETAMINOPHEN 325 MG TAB PO PRN (12:22)
[2020-08-06] MEDS ORDERED: METOPROLOL TARTRATE 25 MG TAB PO SCH (13:00)
== END 2020-08-06 12:59 | disposition home or self-care (01) ==
LOC: ED 10:33
DX: J44.9 Chronic obstructive pulmonary disease, unspecified (principal); R10.32 Left lower quadrant pain; R06.02 Shortness of breath; I11.0 Hypertensive heart disease with heart failure; I50.9 Heart failure, unspecified; E11.9 Type 2 diabetes mellitus without complications; Z98.890 Other specified postprocedural states; Z98.51 Tubal ligation status; Z79.899 Other long term (current) drug therapy; Z88.8 Allergy status to other drugs, medicaments and biological substances
CPT/HCPCS: 71045; J7030